=== PATIENT | female | born 1950 | race Caucasian/White ===

== ENCOUNTER → 2018-01-17 | Emergency (ER) | payer OTHER ==
[~2018-01-17] VITALS: Ht 165.1 cm; Wt 85.3 kg
[~2018-01-17] MED LIST: AMLODIPINE BESY10 MG; AVALIDE 150-12.1 TA1 PO; BYSTOLIC5 MG; CALAN80 MG PO; EVISTA60 MG PO; GLIMEPIRIDE4 MG; GLUCOTROL10 MG; GLUCOVANCE 1.251 TAB PO; HUMALOG MIX 75/10 ML; HUMALOG MIX 75/10 ML SUBCUTANEO; METFORMIN HCL500 MG; OSEL75CA PO; PNEU16DI2; SIMVASTATIN40 MG; SYNTHROID50 MCG; TRADJENTA5 MG; TUSSI PRES-B L120 M1 PO; VITAMIN C60 MG PO
== END | disposition home or self-care (01) ==
LOC: ER 17:09
DX: S92.514A Nondisplaced fracture of proximal phalanx of right lesser toe(s), initial encounter for closed fracture (principal); S90.31XA Contusion of right foot, initial encounter; W01.198A Fall on same level from slipping, tripping and stumbling with subsequent striking against other object, initial encounter; Y93.89 Activity, other specified; Y92.89 Other specified places as the place of occurrence of the external cause; Y99.8 Other external cause status

== ENCOUNTER 2019-07-22 07:24 | Outpatient (CLI) | payer OTHER | END 2019-07-22 07:42 | disposition home or self-care (01) | LOC: SONOGRAMA 07:24 → MAMO-SONO 08:15 | DX: R10.84 Generalized abdominal pain (principal); N18.3 Chronic kidney disease, stage 3 (moderate); R31.29 Other microscopic hematuria ==

== ENCOUNTER 2019-08-02 08:24 | Emergency (ER) | payer OTHER ==
[~2019-08-02] VITALS: Ht 165.1 cm; Wt 83.9 kg
[2019-08-02] MEDS ORDERED: VITAMIN D310000 UNIT (08:43)
[2019-08-02] MEDS ORDERED: SIMVASTATIN40 MG (08:43)
[2019-08-02] MEDS ORDERED: VITAMIN D35000 UNI1 (08:43)
[2019-08-02] MEDS ORDERED: DIPYRIDAMOLE25 MG (08:44)
[2019-08-02] MEDS ORDERED: IRBESARTAN-HCT1 EAC1 (08:44)
[2019-08-02] MEDS ORDERED: NORVASC10 MG (08:45)
[2019-08-02] MEDS ORDERED: BYSTOLIC5 MG (08:45)
[2019-08-02] MEDS ORDERED: HUMULIN N100 UNIT/2 (08:45)
[2019-08-02] MEDS ORDERED: ALDACTONE25 MG (08:45)
[2019-08-02] MEDS ORDERED: SYNTHROID50 MCG (08:46)
[2019-08-02] MEDS ORDERED: LANTUS SOL100 UNIT/1 (08:46)
[2019-08-02] MEDS ORDERED: ULTRACET PO (11:10)
== END 2019-08-02 13:31 | disposition home or self-care (01) ==
LOC: ER 08:24
DX: S80.02XA Contusion of left knee, initial encounter (principal); W18.09XA Striking against other object with subsequent fall, initial encounter; Y93.89 Activity, other specified; Y92.59 Other trade areas as the place of occurrence of the external cause; Y99.8 Other external cause status

== ENCOUNTER 2019-10-04 07:44 | Outpatient (CLI) | payer OTHER ==
[~2019-10-04 07:44] MED LIST changes: +ALDACTONE25 MG; +DIPYRIDAMOLE25 MG; +HUMULIN N100 UNIT/2; +IRBESARTAN-HCT1 EAC1; +LANTUS SOL100 UNIT/1; +NORVASC10 MG; +ULTRACET PO; +VITAMIN D310000 UNIT; +VITAMIN D35000 UNI1
== END 2019-10-04 09:00 | disposition home or self-care (01) ==
LOC: NUCLEAR 07:44
DX: I25.10 Atherosclerotic heart disease of native coronary artery without angina pectoris (principal); I11.9 Hypertensive heart disease without heart failure
CPT/HCPCS: 78452; 93017; A9500; J0153

== ENCOUNTER → 2021-05-05 06:37 | Outpatient (CLI) | payer OTHER | END | disposition home or self-care (01) | LOC: LAB 06:37 | PROVIDERS: ATTEND Internal Medicine Hematology & Oncology | DX: D50.8 Other iron deficiency anemias (principal); R79.9 Abnormal finding of blood chemistry, unspecified; R74.02 Elevation of levels of lactic acid dehydrogenase [LDH]; K76.89 Other specified diseases of liver; D63.8 Anemia in other chronic diseases classified elsewhere; D55.0 Anemia due to glucose-6-phosphate dehydrogenase [G6PD] deficiency; D51.1 Vitamin B12 deficiency anemia due to selective vitamin B12 malabsorption with proteinuria; E03.8 Other specified hypothyroidism; E06.3 Autoimmune thyroiditis; D51.0 Vitamin B12 deficiency anemia due to intrinsic factor deficiency; C50.919 Malignant neoplasm of unspecified site of unspecified female breast; R97.8 Other abnormal tumor markers; C56.9 Malignant neoplasm of unspecified ovary; D63.1 Anemia in chronic kidney disease; D72.828 Other elevated white blood cell count; D51.3 Other dietary vitamin B12 deficiency anemia; N18.4 Chronic kidney disease, stage 4 (severe); E11.22 Type 2 diabetes mellitus with diabetic chronic kidney disease; I12.9 Hypertensive chronic kidney disease with stage 1 through stage 4 chronic kidney disease, or unspecified chronic kidney disease ==

== ENCOUNTER 2021-05-17 10:06 | Outpatient (CLI) | payer OTHER | END 2021-05-17 10:14 | disposition home or self-care (01) | LOC: SONOGRAMA 10:06 | PROVIDERS: ATTEND Internal Medicine Hematology & Oncology | DX: E04.2 Nontoxic multinodular goiter (principal); D72.828 Other elevated white blood cell count; D51.3 Other dietary vitamin B12 deficiency anemia; D63.1 Anemia in chronic kidney disease; N18.4 Chronic kidney disease, stage 4 (severe); E11.22 Type 2 diabetes mellitus with diabetic chronic kidney disease; E78.2 Mixed hyperlipidemia; E03.8 Other specified hypothyroidism ==

== ENCOUNTER 2021-06-07 09:34 | Outpatient (CLI) | payer OTHER | END 2021-06-10 16:36 | disposition home or self-care (01) | LOC: TOM 09:34 | PROVIDERS: ATTEND Internal Medicine Hematology & Oncology | DX: K57.90 Diverticulosis of intestine, part unspecified, without perforation or abscess without bleeding (principal); K52.89 Other specified noninfective gastroenteritis and colitis; D72.828 Other elevated white blood cell count; D51.3 Other dietary vitamin B12 deficiency anemia; D63.1 Anemia in chronic kidney disease; E11.22 Type 2 diabetes mellitus with diabetic chronic kidney disease; E78.2 Mixed hyperlipidemia; E03.8 Other specified hypothyroidism; I10 Essential (primary) hypertension; R97.0 Elevated carcinoembryonic antigen [CEA]; K59.09 Other constipation ==

== ENCOUNTER 2022-09-01 15:07 | Emergency (ER) | payer OTHER ==
[~2022-09-01] VITALS: Ht 157.5 cm; Wt 83.9 kg
[2022-09-01] MEDS ORDERED: VAZALORE81 MG PO (15:53)
== END 2022-09-01 16:56 | disposition home or self-care (01) ==
LOC: ER 15:07
DX: S01.81XA Laceration without foreign body of other part of head, initial encounter (principal); W18.11XA Fall from or off toilet without subsequent striking against object, initial encounter; Y93.89 Activity, other specified; Y92.012 Bathroom of single-family (private) house as the place of occurrence of the external cause; Y99.9 Unspecified external cause status

== ENCOUNTER 2022-10-19 07:53 | Inpatient (IN) | payer OTHER ==
[~2022-10-19] VITALS: Ht 157.5 cm; Wt 74.8 kg
[~2022-10-19 07:53] MED LIST changes: +B Complex CAPSULE PO; +CRESTOR10 MG PO; +HYDRAZINE SULFAT1 GM MC; +Neurin-Sl Tablet Sl SL; +PANTOPRAZOLE SO40 MG PO; +VAZALORE81 MG PO
--- NOTE | 2022-10-19 08:19 | NUR ---
PACIENTE FEMINA ALERTA EN COMPANIA DE KESSLER ESPOSO/ LA MISMA REFIERE SENTIRSE FATIGADA. SE UBICA PACIENTE EN CRITICO
[2022-10-19] MEDS ORDERED: BYSTOLIC5 MG PO (08:49)
[2022-10-19] MEDS ORDERED: HYDRALAZINE HCL50 MG PO (08:49)
[2022-10-19] MEDS ORDERED: AMLODIPINE-OLM1 EAC1 PO (08:50)
[2022-10-19] MEDS ORDERED: NEURIN SL (08:50)
[2022-10-19] MEDS ORDERED: CRESTOR10 MG PO (08:50)
[2022-10-19] MEDS ORDERED: LASIX20 MG PO (08:50)
[2022-10-19] MEDS ORDERED: AVAPRO150 MG PO (08:51)
[2022-10-19] MEDS ORDERED: DOXAZOSIN MESYLA2 MG PO (08:51)
[2022-10-19] MEDS ORDERED: INTEGRA PLUS C1 EACH (08:51)
[2022-10-19] MEDS ORDERED: CEFADROXIL500 MG PO (08:51)
[2022-10-19] MEDS ORDERED: SYNTHROID50 MCG PO (08:51)
--- NOTE | 2022-10-19 08:55 | NUR ---
SE RECIBE PACIENTE FEMENINA ALERTA Y ORIENTADA X3, SE COLOCA EN LA ANA #2 CON BARRANDAS ELEVADAS. SE CONECTA A MONITOR CARDIACO, OXIMETRIA DE PULSO Y CANULA NASAL A 3LIT/MIN. SE CANALIZA EN EL BRAZO DERECHO NAOMY Y DERECHO CON ANGIO #20 Y SE LE COLOCA S/L PATENTE DONELL DE EDEMA Y ENROJECIMIENTO. SE LE DOMINGUEZ LAS MUETRAS Y SE LE ADMINISTRAN LOS MEDICAMENTOS CRYSTAL LAS ORDENES MEDICAS. SE LE INSERTA REYES #[phone] CON MEDIDAS ASEPTICAS Y ESTERILES, SE OBSERVA ORINA COLOR BONILLA. SE OBSERVA POR CAMBIOS.
--- NOTE | 2022-10-19 15:23 | NUR ---
SE RECIBE PACIENTE EN CAMA CON MEDIDAS DE SEGURIDAD. LUCE ALERTA,CONSCIENTE Y ORIENTADA X3. DONELL DE DOLOR AL MOMENTO. BUEN PATRON RESPIRATORIO. CANALIZACIONES PATENTES EN AMBOS BRAZOS. REYES DRENANDO UA ABUNDANTE. PTE EN ESPERA DE SER TRANSFUNDIDA.
[2022-10-26] MEDS ORDERED: DYMISTA NASAL S23 GM NASAL (09:01)
[2022-10-26] MEDS ORDERED: AVAPRO150 MG PO (09:02)
== END 2022-10-26 11:44 | disposition home or self-care (01) | DRG 291 ==
LOC: ER 07:53 → MEDJ 18:41 → ICU-2 18:41 → ICU 10-20 05:31 → SURH 10-22 12:33 → ICU 10-22 12:35 → SURH 10-22 14:27
PROVIDERS: ADMIT Internal Medicine; ATTEND Internal Medicine
PROC: 30233N1 Transfusion of Nonautologous Red Blood Cells into Peripheral Vein, Percutaneous Approach (ICD-10-PCS; principal; 2022-10-19)
PROC: 5A0945A Assistance with Respiratory Ventilation, 24-96 Consecutive Hours, High Flow/Velocity Cannula (ICD-10-PCS; 2022-10-19)
PROC: 4A12X4Z Monitoring of Cardiac Electrical Activity, External Approach (ICD-10-PCS; 2022-10-19)
PROC: B24BYZZ Ultrasonography of Heart with Aorta using Other Contrast (ICD-10-PCS; 2022-10-20)
DX: I13.0 Hypertensive heart and chronic kidney disease with heart failure and stage 1 through stage 4 chronic kidney disease, or unspecified chronic kidney disease (principal); I50.43 Acute on chronic combined systolic (congestive) and diastolic (congestive) heart failure; J96.91 Respiratory failure, unspecified with hypoxia; N18.4 Chronic kidney disease, stage 4 (severe); L97.809 Non-pressure chronic ulcer of other part of unspecified lower leg with unspecified severity; E11.622 Type 2 diabetes mellitus with other skin ulcer; D63.1 Anemia in chronic kidney disease; E11.21 Type 2 diabetes mellitus with diabetic nephropathy; E11.22 Type 2 diabetes mellitus with diabetic chronic kidney disease; I35.0 Nonrheumatic aortic (valve) stenosis; J44.9 Chronic obstructive pulmonary disease, unspecified; Z79.4 Long term (current) use of insulin; Z79.84 Long term (current) use of oral hypoglycemic drugs

== ENCOUNTER 2023-01-10 14:01 | Inpatient (IN) | payer OTHER ==
[~2023-01-10] VITALS: Ht 157.5 cm; Wt 174.6 kg
[~2023-01-10 14:01] MED LIST changes: +AMLODIPINE-OLM1 EAC1 PO; +AVAPRO150 MG PO; +BYSTOLIC5 MG PO; +CEFADROXIL500 MG PO; +DOXAZOSIN MESYLA2 MG PO; +DYMISTA NASAL S23 GM NASAL; +HYDRALAZINE HCL50 MG PO; +INTEGRA PLUS C1 EACH; +LASIX20 MG PO; +NEURIN SL; +SYNTHROID50 MCG PO
--- NOTE | 2023-01-10 14:23 | NUR ---
SE RECIBE PACIENTE ALERTA Y ORIENTADA X3 CON RESULTADO DE LABORATORIO DEL [facility] CON LA HGB EN 6.6. SE MONITOREAN S/V Y SE LE REALIZA EKG. SE UBICA PACIENTE.
--- NOTE | 2023-01-10 14:39 | NUR ---
SE CONECTA PACIENTE A CANULA NASAL A 3LT. PACIENTE LLEGA A ER CON OXIGENO
--- NOTE | 2023-01-10 16:43 | NUR ---
SE EDUCA A PTE SOBRE TX MEDICO ESTA REFIERE ENTENDER. SE DOMINGUEZ MUESTRAS DE LABORATORIO UTILIZAND OMEDIDAS ASEPTICAS. SE COLOCA H/L A PTE EL CUAL SE ENCUENTRA PATENTE.
--- NOTE | 2023-01-10 16:59 | NUR ---
SE LLAMA A BANCO DE NICOL DE [employer] Y RN PERES HABLA CON MS BENDER SOBRE SI PACIENTE TIENE RECORD PREVIO BASIL MISMA REFIERE QUE PACIENTE TIENE RECORD PREVIO Y SE REQUISA 3 UNIDADES DE PRBC. SE COLECTAN TUBOS PILOTOS CRYSTAL ORDEN MEDICA UTILIZANDO MEDIDAS ASEPTICAS. PACIENTE FIRMA CONCENTIMIENTO DE TRANFUSION SE COLOCA EN RECORD DE PACIENTE.
[2023-01-17] MEDS ORDERED: PROTONIX40 MG PO (17:22)
== END 2023-01-17 17:43 | disposition home or self-care (01) | DRG 698 ==
LOC: ER 14:01 → SEC-K 17:16 → ICU-2 19:31 → ICU 01-11 19:42 → MEDI 01-15 11:36
PROVIDERS: ADMIT Internal Medicine; ATTEND Internal Medicine
PROC: 30233N1 Transfusion of Nonautologous Red Blood Cells into Peripheral Vein, Percutaneous Approach (ICD-10-PCS; principal; 2023-01-11)
PROC: 5A0945A Assistance with Respiratory Ventilation, 24-96 Consecutive Hours, High Flow/Velocity Cannula (ICD-10-PCS; 2023-01-11)
PROC: 0DJ08ZZ Inspection of Upper Intestinal Tract, Via Natural or Artificial Opening Endoscopic (ICD-10-PCS; 2023-01-13)
PROC: CD271ZZ Tomographic (Tomo) Nuclear Medicine Imaging of Gastrointestinal Tract using Technetium 99m (Tc-99m) (ICD-10-PCS; 2023-01-13)
PROC: 4A12X4Z Monitoring of Cardiac Electrical Activity, External Approach (ICD-10-PCS; 2023-01-15)
DX: E11.22 Type 2 diabetes mellitus with diabetic chronic kidney disease (principal); D63.1 Anemia in chronic kidney disease; D62 Acute posthemorrhagic anemia; I13.0 Hypertensive heart and chronic kidney disease with heart failure and stage 1 through stage 4 chronic kidney disease, or unspecified chronic kidney disease; I50.33 Acute on chronic diastolic (congestive) heart failure; J81.0 Acute pulmonary edema; E87.71 Transfusion associated circulatory overload; K92.1 Melena; K92.2 Gastrointestinal hemorrhage, unspecified; K31.819 Angiodysplasia of stomach and duodenum without bleeding; N18.4 Chronic kidney disease, stage 4 (severe); E11.65 Type 2 diabetes mellitus with hyperglycemia; E11.40 Type 2 diabetes mellitus with diabetic neuropathy, unspecified; N17.9 Acute kidney failure, unspecified; Z79.4 Long term (current) use of insulin

== ENCOUNTER 2023-03-08 15:08 | Inpatient (IN) | payer OTHER ==
[~2023-03-08] VITALS: Ht 157.5 cm; Wt 79.4 kg
[~2023-03-08 15:08] MED LIST changes: +PROTONIX40 MG PO
--- NOTE | 2023-03-08 15:35 | NUR ---
SE RECIBE PACIENTE ALERTA Y ORIENTADA X3, CON CANULA A 2L/MIN; LA MISMA REFIERE SER PACIENTE DEL DR. ONOFRE GARCES. MENCIONA HABERSE REALIZADO CBC EN EL [facility] Y TENER LA HEMOGLOBINA EN 7.4. SE MONITOREAN VS Y SE UBICA EN ANA #13.
[2023-03-09] MEDS ORDERED: B-121000 MC1 (13:09)
[2023-03-09] MEDS ORDERED: HUMALOG KW100 UNIT/1 (13:10)
[2023-03-09] MEDS ORDERED: ESOMEPRAZOLE MA40 MG (13:10)
[2023-03-09] MEDS ORDERED: INTEGRA PLUS C1 EAC1 (13:10)
[2023-03-09] MEDS ORDERED: FUROSEMIDE40 MG (13:10)
[2023-03-09] MEDS ORDERED: SUCRALFATE1 GM/10 ML (13:10)
[2023-03-09] MEDS ORDERED: ROSUVASTATIN CA10 MG (13:10)
[2023-03-09] MEDS ORDERED: ABANEU-SL TABL1 EACH (13:11)
== END 2023-03-11 17:27 | disposition home or self-care (01) | DRG 811 ==
LOC: ER 15:08 → ICU 17:36 → ICU-2 17:36 → ICU 22:39 → MEDJ 03-10 17:34
PROVIDERS: ADMIT Internal Medicine; ATTEND Internal Medicine
PROC: 30233N1 Transfusion of Nonautologous Red Blood Cells into Peripheral Vein, Percutaneous Approach (ICD-10-PCS; 2023-03-08)
PROC: 4A12X4Z Monitoring of Cardiac Electrical Activity, External Approach (ICD-10-PCS; principal; 2023-03-10)
DX: D64.9 Anemia, unspecified (principal); K31.811 Angiodysplasia of stomach and duodenum with bleeding; I50.30 Unspecified diastolic (congestive) heart failure; N17.9 Acute kidney failure, unspecified; R09.02 Hypoxemia; I35.0 Nonrheumatic aortic (valve) stenosis; I27.20 Pulmonary hypertension, unspecified; Z79.4 Long term (current) use of insulin; I11.0 Hypertensive heart disease with heart failure; I12.9 Hypertensive chronic kidney disease with stage 1 through stage 4 chronic kidney disease, or unspecified chronic kidney disease; E11.22 Type 2 diabetes mellitus with diabetic chronic kidney disease; N18.9 Chronic kidney disease, unspecified; E03.9 Hypothyroidism, unspecified; E11.65 Type 2 diabetes mellitus with hyperglycemia; Z20.822 Contact with and (suspected) exposure to COVID-19; N18.30 Chronic kidney disease, stage 3 unspecified; D63.1 Anemia in chronic kidney disease; D46.Z Other myelodysplastic syndromes

== ENCOUNTER 2023-12-13 13:48 | Outpatient (CLI) | payer OTHER ==
[~2023-12-13 13:48] MED LIST changes: +ABANEU-SL TABL1 EACH; +B-121000 MC1; +ESOMEPRAZOLE MA40 MG; +FUROSEMIDE40 MG; +HUMALOG KW100 UNIT/1; +INTEGRA PLUS C1 EAC1; +ROSUVASTATIN CA10 MG; +SUCRALFATE1 GM/10 ML
== END 2023-12-13 13:58 | disposition home or self-care (01) ==
LOC: TOM 13:48
PROVIDERS: ATTEND Internal Medicine
DX: Z87.09 Personal history of other diseases of the respiratory system (principal); I50.30 Unspecified diastolic (congestive) heart failure; Z99.81 Dependence on supplemental oxygen

== ENCOUNTER 2024-12-04 06:45 | Inpatient (IN) | payer OTHER ==
[~2024-12-04] VITALS: Ht 167.6 cm; Wt 71.7 kg
[~2024-12-04 06:45] MED LIST changes: +ADMELOG100 UNIT/1; +CARAFATE1 GM PO; +DYMISTA NASAL S23 GM IH; +FUROSEMIDE20 MG PO; +HUMALOG100 UNIT/2; +HUMULIN N100 UNIT/2 IJ; +INTEGRA F CAPS1 EACH PO; +IRBESARTAN150 MG PO; +LANTUS SOL100 UNIT/1 SQ; +NORVASC10 MG PO; +ROSUVASTATIN CA10 MG PO; +SEMGLEE100 UNIT/1; +TRAMADOL HCL50 MG PO
[2024-12-04 09:44] LABS: MEAN CELL VOLUME 92.2 fL (80.00-100.00); MEAN CORPUSCULAR HGB CONC 32.7 g/dl (32.0-36.0); PLATELET COUNT 309 K/uL (150-450); RED BLOOD COUNT 2.37 M/uL (4.00-6.00); RED CELL DISTRIBUTION WIDTH 17.9 % (11.5-14.5)
[2024-12-04 09:48] LABS: HEMATOCRIT 21.9 % (36.0-45.00); HEMOGLOBIN 7.2 g/dL (12.0-15.00); MEAN CORPUSCULAR HEMOGLOBIN 30.3 pg (27.00-32.0)
[2024-12-04 09:58] LABS: INR 1.09; PARTIAL THROMBOPLASTIN TIME 32.2 SECONDS (22.0-34.0); PROTHROMBIN TIME 11.8 SECONDS (9.0-11.5)
[2024-12-04] MEDS ORDERED: ACETAMINOPHEN 500 MG GEL..CAP PO ONE (09:59)
[2024-12-04 10:11] LABS: ALBUMIN 2.8 gm/dL (3.4-5.0); BILIRUBIN TOTAL 0.4 mg/dL (0.3-1.2); BILIRUBIN,CONJUGATED 0.13 mg/dL (0.0-0.2); BILIRUBIN,UNCONJUGATED 0.27 mg/dL (0.0-0.6); CALCIUM 9.1 mg/dL (8.5-10.1); GFR 7.87; POTASSIUM 4.52 mEq/L (3.5-5.1); TOTAL PROTEIN 7.5 gm/dL (6.4-8.2)
[2024-12-04 10:17] LABS: CREATININE SERUM 5.31 mg/dL (0.55-1.02)
[2024-12-04 12:30] VITALS: BP 152/65
[2024-12-04 12:47] VITALS: BP 132/42; O2SAT 98
[2024-12-04] MEDS ORDERED: PANTOPRAZOLE SODIUM 40 MG TABLET.DR PO SCH (13:49)
[2024-12-04] MEDS ORDERED: INSULIN LISPRO 1,000 UNIT/10 ML UNITS SUBCUTANEO PRN (14:00)
[2024-12-04] MEDS ORDERED: DEXTROSE 50 % IN WATER 0.5 G/ML DISP.SYRIN IV PRN (14:00)
[2024-12-04] MEDS ORDERED: INSULIN LISPRO 1,000 UNIT/10 ML UNITS SUBCUTANEO ONE (15:19)
[2024-12-04 15:25] VITALS: BP 150/60; O2SAT 100
[2024-12-04 17:00] VITALS: BP 152/65; O2SAT 100
[2024-12-04] MEDS ORDERED: CARVEDILOL 6.25 MG TABLET PO SCH (17:00)
[2024-12-04] MEDS ORDERED: AMINO ACIDS 1 EACH TABLET PO SCH (17:00)
[2024-12-04] MEDS ORDERED: hydrALAZINE HCL 50 MG TABLET PO SCH (17:00)
[2024-12-04 17:43] LABS: PH,URINE 6.5 (5.0-8.0); URINE APPEARANCE Turbid; URINE BILIRRUBIN Negative (NEGATIVE); URINE BLOOD Negative; URINE COLOR Yellow; URINE KETONE Trace (NEGATIVE); URINE LEUKOCYTE Small; URINE NITRATE Negative; URINE PROTEIN >=1000 (NEGATIVE); URINE UROBILINOGEN 0.2 E.U./dl
[2024-12-04 17:50] LABS: URINE EPITHELIAL CELLS 45.2 uL (0.0-38.8); URINE RBC 16.9 uL (0.0-20.8); URINE WBC 731.7 uL (0.0-23.2)
[2024-12-04 18:06] LABS: URINE BACTERIA > 9821.5 uL (0.0-1933); URINE CAST 0.66 uL (0.0-1.40); URINE GLUCOSE 500 MG/DL (NEGATIVE)
[2024-12-04] MEDS ORDERED: GABAPENTIN 100 MG CAPSULE PO SCH (21:00)
[2024-12-05] VITALS: BP 124/55; O2SAT 96
[2024-12-05] MEDS ORDERED: LEVOTHYROXINE SODIUM 50 MCG TABLET PO SCH (06:00)
[2024-12-05 07:04] LABS: MEAN CELL VOLUME 91.1 fL (80.00-100.00); MEAN CORPUSCULAR HGB CONC 33.5 g/dl (32.0-36.0); PLATELET COUNT 335 K/uL (150-450); RED BLOOD COUNT 2.37 M/uL (4.00-6.00); RED CELL DISTRIBUTION WIDTH 17.5 % (11.5-14.5)
[2024-12-05 07:20] VITALS: BP 153/67; O2SAT 90
[2024-12-05 07:41] LABS: ALBUMIN 2.8 gm/dL (3.4-5.0); BILIRUBIN TOTAL 0.39 mg/dL (0.3-1.2); CALCIUM 8.6 mg/dL (8.5-10.1); GFR 6.45; GLOBULINA 4.2 G/DL (2.4-3.5); MAGNESIUM 2.4 mg/dL (1.8-2.4); PHOSPHOROUS 5.7 mg/dL (2.5-4.9); POTASSIUM 5.83 mEq/L (3.5-5.1)
[2024-12-05 07:47] LABS: HEMATOCRIT 21.5 % (36.0-45.00); HEMOGLOBIN 7.2 g/dL (12.0-15.00); MEAN CORPUSCULAR HEMOGLOBIN 30.3 pg (27.00-32.0)
[2024-12-05 08:27] LABS: CREATININE SERUM 6.31 mg/dL (0.55-1.02)
[2024-12-05] MEDS ORDERED: IRBESARTAN 150 MG TABLET PO SCH (09:00)
[2024-12-05] MEDS ORDERED: IRON FUM,PS/FOLIC/BCOMP,C NO.9 1 CAP CAPSULE PO SCH (09:00)
[2024-12-05] MEDS ORDERED: AMLODIPINE BESYLATE 5 MG TABLET PO SCH (09:00)
[2024-12-05] MEDS ORDERED: HEPARIN SODIUM,PORCINE 5,000 UNITS/ML VIAL ONE (14:24)
[2024-12-05] MEDS ORDERED: HEPARIN SODIUM,PORCINE 5,000 UNITS/ML VIAL SPEPROC SCH (14:30)
[2024-12-05 15:30] VITALS: BP 159/72; O2SAT 94
[2024-12-05] MEDS ORDERED: PATIENTS OWN MEDICATION (MEDICAMENTO EN PISO) PO SCH (17:00)
[2024-12-05 18:31] LABS: HEMOGLOBIN 10.8 g/dL (12.0-15.00); MEAN CELL VOLUME 88.5 fL (80.00-100.00); MEAN CORPUSCULAR HEMOGLOBIN 29.8 pg (27.00-32.0); MEAN CORPUSCULAR HGB CONC 33.6 g/dl (32.0-36.0); PLATELET COUNT 277 K/uL (150-450); RED BLOOD COUNT 3.62 M/uL (4.00-6.00); RED CELL DISTRIBUTION WIDTH 17.4 % (11.5-14.5)
[2024-12-05 23:27] LABS: ERYTHROCYTE SEDIMENTATION RATE 72 mm/hr
[2024-12-05 23:28] LABS: HEMATOCRIT 27.8 % (36.0-45.00); HEMOGLOBIN 9.3 g/dL (12.0-15.00); MEAN CELL VOLUME 88.9 fL (80.00-100.00); MEAN CORPUSCULAR HEMOGLOBIN 29.8 pg (27.00-32.0); MEAN CORPUSCULAR HGB CONC 33.5 g/dl (32.0-36.0); PLATELET COUNT 299 K/uL (150-450); RED BLOOD COUNT 3.13 M/uL (4.00-6.00); RED CELL DISTRIBUTION WIDTH 16.8 % (11.5-14.5)
[2024-12-05 23:55] LABS: ALBUMIN 2.9 gm/dL (3.4-5.0); BILIRUBIN TOTAL 0.65 mg/dL (0.3-1.2); CALCIUM 8.9 mg/dL (8.5-10.1); GLOBULINA 4.2 G/DL (2.4-3.5); MAGNESIUM 2.1 mg/dL (1.8-2.4); PHOSPHOROUS 4.4 mg/dL (2.5-4.9); POTASSIUM 4.66 mEq/L (3.5-5.1); TOTAL PROTEIN 7.1 gm/dL (6.4-8.2)
[2024-12-06 00:14] LABS: C-REACTIVE PROTEIN 11.7 MG/DL (0.00-0.29); CREATININE SERUM 3.94 mg/dL (0.55-1.02); GFR 11.11
[2024-12-06 00:43] VITALS: BP 129/70; O2SAT 97
[2024-12-06 08:10] VITALS: BP 164/72; O2SAT 95
[2024-12-06] MEDS ORDERED: ACETAMINOPHEN 500 MG GEL..CAP PO PRN (09:15)
[2024-12-06 16:10] VITALS: BP 170/73; O2SAT 100
[2024-12-06] MEDS ORDERED: CARVEDILOL 12.5 MG TABLET PO SCH (17:00)
[2024-12-06] MEDS ORDERED: LIDOCAINE HCL 1%/EPINEPHRINE 20ML VIAL IJ ONE (19:00)
[2024-12-06] MEDS ORDERED: HEPARIN SODIUM,PORCINE 500 UNITS/5 ML VIAL IV ONE (19:00)
[2024-12-06] MEDS ORDERED: BUPIVACAINE HCL 30 ML VIAL IJ ONE (19:00)
[2024-12-07 00:29] VITALS: BP 157/61; O2SAT 98
[2024-12-07 08:44] VITALS: BP 127/72; O2SAT 95
[2024-12-07] MEDS ORDERED: CARVEDILOL12.5 MG PO (13:14)
== END 2024-12-07 13:21 | disposition home or self-care (01) | DRG 683 ==
LOC: ER 06:47 → SURH 14:06 → SEC-K 14:06 → SURH 14:32
PROVIDERS: General Practice; ADMIT Internal Medicine; ATTEND Internal Medicine
PROC: 5A1D70Z Performance of Urinary Filtration, Intermittent, Less than 6 Hours Per Day (ICD-10-PCS; principal; 2024-12-05)
PROC: 30233N1 Transfusion of Nonautologous Red Blood Cells into Peripheral Vein, Percutaneous Approach (ICD-10-PCS; 2024-12-05)
PROC: 0J2VXYZ Change Other Device in Upper Extremity Subcutaneous Tissue and Fascia, External Approach (ICD-10-PCS; 2024-12-06)
PROC: B513YZA Fluoroscopy of Right Jugular Veins using Other Contrast, Guidance (ICD-10-PCS; 2024-12-06)
DX: N18.6 End stage renal disease (principal); T82.41XA Breakdown (mechanical) of vascular dialysis catheter, initial encounter; R50.84 Febrile nonhemolytic transfusion reaction; I12.0 Hypertensive chronic kidney disease with stage 5 chronic kidney disease or end stage renal disease; E11.22 Type 2 diabetes mellitus with diabetic chronic kidney disease; D64.89 Other specified anemias; E11.65 Type 2 diabetes mellitus with hyperglycemia; D63.1 Anemia in chronic kidney disease; E03.9 Hypothyroidism, unspecified; Z99.2 Dependence on renal dialysis; Z79.4 Long term (current) use of insulin

== ENCOUNTER 2024-12-12 11:27 | Emergency (ER) | payer OTHER ==
[~2024-12-12] VITALS: Ht 157.5 cm; Wt 69.9 kg
[~2024-12-12 11:27] MED LIST changes: +CARVEDILOL12.5 MG PO
[2024-12-12] MEDS ORDERED: ACETAMINOPHEN500 M1 PO (14:12)
[2024-12-12] MEDS ORDERED: CYCLOBENZAPRINE5 MG PO (14:12)
== END 2024-12-12 14:21 | disposition home or self-care (01) ==
LOC: ER 11:30
DX: S00.93XA Contusion of unspecified part of head, initial encounter (principal); S00.83XA Contusion of other part of head, initial encounter; W08.XXXA Fall from other furniture, initial encounter; Y93.84 Activity, sleeping; Y92.018 Other place in single-family (private) house as the place of occurrence of the external cause; Y99.9 Unspecified external cause status; E11.9 Type 2 diabetes mellitus without complications; Z79.4 Long term (current) use of insulin; Z79.84 Long term (current) use of oral hypoglycemic drugs; I10 Essential (primary) hypertension

== ENCOUNTER 2024-12-28 12:33 | Inpatient (IN) | payer OTHER ==
[~2024-12-28] VITALS: Ht 157.5 cm; Wt 71.7 kg
[~2024-12-28 12:33] MED LIST changes: +ACETAMINOPHEN500 M1 PO; +CYCLOBENZAPRINE5 MG PO
--- NOTE | 2024-12-28 12:46 | NUR ---
PACIENTE VIENE HOY POR ANEMIA EN HGB 6.6 Y OCCULTBLOOD POSITIVO
[2024-12-28 14:14] LABS: MEAN CELL VOLUME 92.4 fL (80.00-100.00); MEAN CORPUSCULAR HGB CONC 31.8 g/dl (32.0-36.0); PLATELET COUNT 378 K/uL (150-450); RED BLOOD COUNT 2.38 M/uL (4.00-6.00)
[2024-12-28 14:19] LABS: MEAN CORPUSCULAR HEMOGLOBIN 29.4 pg (27.00-32.0)
[2024-12-28 14:22] LABS: RED CELL DISTRIBUTION WIDTH 20.4 % (11.5-14.5)
[2024-12-28 14:27] LABS: INR 1.05; PROTHROMBIN TIME 11.4 SECONDS (9.0-11.5)
[2024-12-28 14:32] LABS: ALBUMIN 2.8 gm/dL (3.4-5.0); BILIRUBIN TOTAL 0.36 mg/dL (0.3-1.2); CALCIUM 9.7 mg/dL (8.5-10.1); CREATININE SERUM 3.31 mg/dL (0.55-1.02); GFR 13.58; GLOBULINA 5.1 G/DL (2.4-3.5); POTASSIUM 4.27 mEq/L (3.5-5.1); TOTAL PROTEIN 7.9 gm/dL (6.4-8.2)
[2024-12-28 14:33] LABS: PARTIAL THROMBOPLASTIN TIME < 20.0 SECONDS (22.0-34.0)
[2024-12-28 14:41] LABS: PH,URINE 7.5 (5.0-8.0); URINE APPEARANCE Turbid; URINE BILIRRUBIN Negative (NEGATIVE); URINE BLOOD Negative; URINE COLOR Yellow; URINE KETONE Trace (NEGATIVE); URINE LEUKOCYTE Moderate; URINE NITRATE Negative; URINE PROTEIN >=1000 (NEGATIVE); URINE UROBILINOGEN 0.2 E.U./dl
[2024-12-28 14:43] LABS: URINE EPITHELIAL CELLS 28.8 uL (0.0-38.8); URINE RBC 5.5 uL (0.0-20.8); URINE WBC 1272.9 uL (0.0-23.2)
[2024-12-28 15:09] LABS: URINE BACTERIA > 9821.5 uL (0.0-1933); URINE CAST 0.58 uL (0.0-1.40); URINE GLUCOSE 250 MG/DL (NEGATIVE); URINE YEAST NEGATIVE /hpf
[2024-12-28] MEDS ORDERED: INSULIN LISPRO 1,000 UNIT/10 ML UNITS SUBCUTANEO PRN (18:15)
[2024-12-28] MEDS ORDERED: DEXTROSE 50 % IN WATER 0.5 G/ML DISP.SYRIN IV PRN (18:15)
[2024-12-28] MEDS ORDERED: CEFTRIAXONE SODIUM 2,000 MG in 0.9 % SODIUM CHLORIDE 100 ML IV SCH (21:35)
[2024-12-28] MEDS ORDERED: 0.9 % SODIUM CHLORIDE 1,000 ML IV SCH (21:45)
[2024-12-28] MEDS ORDERED: PANTOPRAZOLE SODIUM 40 MG in 0.9 % SODIUM CHLORIDE 8 ML IV PUSH SCH (21:46)
[2024-12-28] MEDS ORDERED: CARVEDILOL 6.25 MG TABLET PO SCH (21:53)
[2024-12-28] MEDS ORDERED: hydrALAZINE HCL 50 MG TABLET PO SCH (21:54)
[2024-12-28] MEDS ORDERED: MORPHINE SULFATE 4 MG/ML VIAL IV PRN (22:00)
[2024-12-28 22:30] VITALS: BP 134/53; O2SAT 95
[2024-12-29 00:40] VITALS: BP 140/60; O2SAT 96
[2024-12-29] MEDS ORDERED: IPRATROPIUM BROMIDE 0.5 MG/2.5 ML AMPUL.NEB IH SCH ×2 (05:30→09:15)
[2024-12-29] MEDS ORDERED: LEVALBUTEROL HCL 1.25 MG/3 ML SOLUTION IH SCH ×4 (05:30→13:00)
[2024-12-29] MEDS ORDERED: IPRATROPIUM BROMIDE 0.5 MG/2.5 ML AMPUL.NEB IH ONE (05:44)
[2024-12-29] MEDS ORDERED: LEVALBUTEROL HCL 0.63 MG/3 ML SOLUTION IH ONE ×2 (05:45→08:57)
[2024-12-29 08:25] VITALS: BP 140/60; O2SAT 74
[2024-12-29] MEDS ORDERED: FUROsemide 40 MG/4 ML VIAL IV STA (09:11)
[2024-12-29] MEDS ORDERED: METHYLPREDNISOLONE SOD SUCC 40 MG VIAL IV STA (09:11)
[2024-12-29 11:56] LABS: ABG pCO2 36.2 mmHg (35-45)
[2024-12-29 11:57] LABS: ABG PO2 47.2 mmHg (80-100); BASE EXCESS -4.1 mmol/l; SaO2 80.8 %
[2024-12-29 11:58] LABS: BICARBONATE 20.4 mmol/l (23-25); Tco2 21.5 mmol/l; allen test SATISFACTORY; o2 40 %; puncture site RADIAL RIGHT
[2024-12-29 16:00] VITALS: BP 141/63
[2024-12-29] MEDS ORDERED: MORPHINE SULFATE 4 MG/ML CARTRIDGE IV PRN (17:00)
[2024-12-29 18:54] LABS: HEMATOCRIT 25.2 % (36.0-45.00); HEMOGLOBIN 8.2 g/dL (12.0-15.00); MEAN CELL VOLUME 92.5 fL (80.00-100.00); MEAN CORPUSCULAR HGB CONC 32.4 g/dl (32.0-36.0); PLATELET COUNT 385 K/uL (150-450); RED BLOOD COUNT 2.73 M/uL (4.00-6.00); RED CELL DISTRIBUTION WIDTH 18.4 % (11.5-14.5)
[2024-12-29] MEDS ORDERED: HEPARIN SODIUM,PORCINE 5,000 UNITS/ML VIAL IV ONE (20:15)
[2024-12-30 00:18] LABS: HEMATOCRIT 30.7 % (36.0-45.00); HEMOGLOBIN 10.6 g/dL (12.0-15.00); MEAN CELL VOLUME 88.8 fL (80.00-100.00); MEAN CORPUSCULAR HEMOGLOBIN 30.5 pg (27.00-32.0); MEAN CORPUSCULAR HGB CONC 34.4 g/dl (32.0-36.0); PLATELET COUNT 349 K/uL (150-450); RED BLOOD COUNT 3.46 M/uL (4.00-6.00)
[2024-12-30 01:24] VITALS: BP 145/66
[2024-12-30 06:45] LABS: HEMATOCRIT 30.9 % (36.0-45.00); HEMOGLOBIN 10.5 g/dL (12.0-15.00); MEAN CELL VOLUME 88.6 fL (80.00-100.00); MEAN CORPUSCULAR HEMOGLOBIN 30.2 pg (27.00-32.0); MEAN CORPUSCULAR HGB CONC 34.1 g/dl (32.0-36.0); PLATELET COUNT 365 K/uL (150-450); RED BLOOD COUNT 3.48 M/uL (4.00-6.00); RED CELL DISTRIBUTION WIDTH 18.2 % (11.5-14.5)
[2024-12-30 07:09] LABS: ALBUMIN 2.8 gm/dL (3.4-5.0); BILIRUBIN TOTAL 0.44 mg/dL (0.3-1.2); CALCIUM 9.2 mg/dL (8.5-10.1); CREATININE SERUM 3.2 mg/dL (0.55-1.02); GFR 14.12; GLOBULINA 4.3 G/DL (2.4-3.5); MAGNESIUM 2.2 mg/dL (1.8-2.4); PHOSPHOROUS 5.2 mg/dL (2.5-4.9); POTASSIUM 4.74 mEq/L (3.5-5.1); TOTAL PROTEIN 7.1 gm/dL (6.4-8.2)
[2024-12-30 08:30] VITALS: BP 131/61; O2SAT 94
[2024-12-30] MEDS ORDERED: GABAPENTIN 100 MG CAPSULE PO SCH (09:00)
[2024-12-30] MEDS ORDERED: TRAMADOL HCL 50 MG TABLET PO SCH (09:00)
[2024-12-30] MEDS ORDERED: EPOETIN ALFA-EPBX 10,000 UNIT/ML VIAL (Retacrit) SUBCUTANEO ONE (09:15)
[2024-12-30] MEDS ORDERED: CARVEDILOL12.5 MG PO (09:40)
[2024-12-30] MEDS ORDERED: LANTUS SOL100 UNIT/1 SUBCUTANEO (09:46)
== END 2024-12-30 09:57 | disposition home or self-care (01) | DRG 811 ==
LOC: ER 12:36 → MEDI 22:09 → SEC-K 12-29 02:52 → MEDI 12-29 09:43
PROVIDERS: General Practice; Internal Medicine; ADMIT Internal Medicine; ATTEND Internal Medicine
PROC: 30233N1 Transfusion of Nonautologous Red Blood Cells into Peripheral Vein, Percutaneous Approach (ICD-10-PCS; principal; 2024-12-29)
PROC: 5A1D70Z Performance of Urinary Filtration, Intermittent, Less than 6 Hours Per Day (ICD-10-PCS; 2024-12-29)
PROC: 3E0F7GC Introduction of Other Therapeutic Substance into Respiratory Tract, Via Natural or Artificial Opening (ICD-10-PCS; 2024-12-29)
PROC: 4A12X4Z Monitoring of Cardiac Electrical Activity, External Approach (ICD-10-PCS; 2024-12-29)
DX: D64.89 Other specified anemias (principal); N18.6 End stage renal disease; I12.0 Hypertensive chronic kidney disease with stage 5 chronic kidney disease or end stage renal disease; R06.03 Acute respiratory distress; D63.1 Anemia in chronic kidney disease; J44.9 Chronic obstructive pulmonary disease, unspecified; K31.819 Angiodysplasia of stomach and duodenum without bleeding; E11.51 Type 2 diabetes mellitus with diabetic peripheral angiopathy without gangrene; E03.9 Hypothyroidism, unspecified; Z99.2 Dependence on renal dialysis; Z99.81 Dependence on supplemental oxygen; Z79.4 Long term (current) use of insulin

== ENCOUNTER 2025-01-20 07:13 | Inpatient (IN) | payer OTHER ==
[~2025-01-20] VITALS: Ht 157.5 cm; Wt 68.9 kg
[~2025-01-20 07:13] MED LIST changes: +LANTUS SOL100 UNIT/1 SUBCUTANEO
[2025-01-20] MEDS ORDERED: HUMULIN 70100 UNIT/2 SUBCUTANEO (07:27)
[2025-01-20] MEDS ORDERED: NEXIUM40 M1 PO (07:28)
[2025-01-20] MEDS ORDERED: HYDRALAZINE HC100 MG PO (07:28)
[2025-01-20] MEDS ORDERED: GLYXAMBI 10 MG1 EACH PO (07:29)
[2025-01-20] MEDS ORDERED: CARVEDILOL ER40 MG PO (07:29)
[2025-01-20] MEDS ORDERED: GABAPENTIN100 M2 PO (07:29)
[2025-01-20] MEDS ORDERED: 0.9 % SODIUM CHLORIDE 1,000 ML IV SCH (08:30)
[2025-01-20 09:35] LABS: MEAN CELL VOLUME 98.7 fL (80.00-100.00); MEAN CORPUSCULAR HGB CONC 33.1 g/dl (32.0-36.0); PLATELET COUNT 299 K/uL (150-450); RED BLOOD COUNT 2.33 M/uL (4.00-6.00)
[2025-01-20 09:49] LABS: MEAN CORPUSCULAR HEMOGLOBIN 32.6 pg (27.00-32.0); RED CELL DISTRIBUTION WIDTH 22.5 % (11.5-14.5)
[2025-01-20 09:50] LABS: HEMOGLOBIN 7.6 g/dL (12.0-15.00)
[2025-01-20 10:10] LABS: CALCIUM 9.2 mg/dL (8.5-10.1); GFR 9.08; POTASSIUM 5.13 mEq/L (3.5-5.1)
[2025-01-20 10:42] LABS: CREATININE SERUM 4.69 mg/dL (0.55-1.02)
[2025-01-20] MEDS ORDERED: PANTOPRAZOLE SODIUM 40 MG in 0.9 % SODIUM CHLORIDE 8 ML IV PUSH SCH (12:30)
[2025-01-20] MEDS ORDERED: CARVEDILOL 6.25 MG TABLET PO SCH (12:42)
[2025-01-20] MEDS ORDERED: hydrALAZINE HCL 50 MG TABLET PO SCH (12:43)
[2025-01-20] MEDS ORDERED: AMLODIPINE BESYLATE 5 MG TABLET PO SCH (12:43)
[2025-01-20] MEDS ORDERED: ATORVASTATIN CALCIUM 20 MG TABLET PO SCH (12:44)
[2025-01-20] MEDS ORDERED: INSULIN LISPRO 1,000 UNIT/10 ML UNITS SUBCUTANEO PRN (12:45)
[2025-01-20] MEDS ORDERED: DEXTROSE 50 % IN WATER 0.5 G/ML DISP.SYRIN IV PRN (12:45)
[2025-01-20] MEDS ORDERED: MORPHINE SULFATE 2 MG/ML CARTRIDGE IV PRN (12:45)
[2025-01-20] MEDS ORDERED: GABAPENTIN 100 MG CAPSULE PO SCH (12:55)
[2025-01-20 15:56] VITALS: BP 170/66; O2SAT 98
[2025-01-20 16:10] LABS: ABG PH 7.421 (7.35-7.45); ABG PO2 90.4 mmHg (80-100); BASE EXCESS -0.5 mmol/l; BICARBONATE 23.5 mmol/l (23-25); SaO2 97.1 %; Tco2 24.7 mmol/l
[2025-01-20 17:31] LABS: INR 1.07; PARTIAL THROMBOPLASTIN TIME 31.7 SECONDS (22.0-34.0); PROTHROMBIN TIME 11.6 SECONDS (9.0-11.5)
[2025-01-20 22:57] LABS: allen test SATISFACTORY; o2 21 %; puncture site RADIAL RIGHT
[2025-01-21 00:40] VITALS: BP 139/65; O2SAT 94
[2025-01-21 03:10] VITALS: BP 152/62; O2SAT 94
[2025-01-21] MEDS ORDERED: LEVOTHYROXINE SODIUM 50 MCG TABLET PO SCH (06:00)
[2025-01-21 08:00] VITALS: BP 166/67; O2SAT 95
[2025-01-21] MEDS ORDERED: VANCOMYCIN HCL 1,000 MG VIAL ONE (08:30)
[2025-01-21] MEDS ORDERED: TETRACAINE/BENZOCAINE/BUTAMBEN 56 ML BOTTLE TOP ONE (08:45)
[2025-01-21] MEDS ORDERED: SODIUM HYPOCHLORITE 1OZ TOP SCH (09:00)
[2025-01-21] MEDS ORDERED: VANCOMYCIN HCL 1,000 MG VIAL IV NR (09:00)
[2025-01-21] MEDS ORDERED: MEROPENEM 500 MG/VIAL VIAL IV NR (09:00)
[2025-01-21] MEDS ORDERED: VANCOMYCIN HCL 500 MG VIAL IV SCH (14:00)
[2025-01-21] MEDS ORDERED: CEFEPIME HCL 1,000 MG VIAL IV SCH (17:00)
[2025-01-21 18:00] VITALS: BP 132/72; O2SAT 92
[2025-01-21] MEDS ORDERED: HEPARIN SODIUM,PORCINE 5,000 UNITS/ML VIAL ONE (22:01)
[2025-01-22 00:59] LABS: HEMATOCRIT 30.6 % (36.0-45.00); MEAN CELL VOLUME 94.8 fL (80.00-100.00); MEAN CORPUSCULAR HGB CONC 34.2 g/dl (32.0-36.0); PLATELET COUNT 306 K/uL (150-450); RED BLOOD COUNT 3.23 M/uL (4.00-6.00); RED CELL DISTRIBUTION WIDTH 18.2 % (11.5-14.5)
[2025-01-22 01:05] VITALS: BP 147/74; O2SAT 98
[2025-01-22 01:28] LABS: HEMOGLOBIN 10.5 g/dL (12.0-15.00); MEAN CORPUSCULAR HEMOGLOBIN 32.5 pg (27.00-32.0)
[2025-01-22] MEDS ORDERED: TETRACAINE/BENZOCAINE/BUTAMBEN 56 ML BOTTLE TOP STA (07:40)
[2025-01-22 08:00] VITALS: BP 141/73; O2SAT 94
[2025-01-22 08:02] LABS: MEAN CELL VOLUME 94.1 fL (80.00-100.00); MEAN CORPUSCULAR HEMOGLOBIN 32.2 pg (27.00-32.0); MEAN CORPUSCULAR HGB CONC 34.2 g/dl (32.0-36.0); PLATELET COUNT 319 K/uL (150-450); RED BLOOD COUNT 2.98 M/uL (4.00-6.00); RED CELL DISTRIBUTION WIDTH 18.6 % (11.5-14.5)
[2025-01-22 08:16] LABS: HEMOGLOBIN 9.6 g/dL (12.0-15.00)
[2025-01-22 11:36] LABS: ALBUMIN 2.5 gm/dL (3.4-5.0); BILIRUBIN TOTAL 0.53 mg/dL (0.3-1.2); CALCIUM 8.6 mg/dL (8.5-10.1); GLOBULINA 3.9 G/DL (2.4-3.5); MAGNESIUM 2.4 mg/dL (1.8-2.4); PHOSPHOROUS 4.2 mg/dL (2.5-4.9); POTASSIUM 4.55 mEq/L (3.5-5.1); TOTAL PROTEIN 6.4 gm/dL (6.4-8.2)
[2025-01-22 11:38] LABS: C-REACTIVE PROTEIN 15.7 MG/DL (0.00-0.29); CREATININE SERUM 3.92 mg/dL (0.55-1.02); GFR 11.17
[2025-01-22 17:00] VITALS: BP 124/50; O2SAT 96
[2025-01-22] MEDS ORDERED: VITAMIN B COMPLEX/LYSINE 15 ML BLIST.PACK PO SCH (17:00)
[2025-01-22] MEDS ORDERED: EPOETIN ALFA-EPBX 10,000 UNIT/ML VIAL (Retacrit) SUBCUTANEO NR (17:00)
[2025-01-22] MEDS ORDERED: POLYETHYLENE GLYCOL 3350 17 GM BLIST.PACK PO SCH (17:45)
[2025-01-23 01:15] VITALS: BP 147/69; O2SAT 97
[2025-01-23 09:05] LABS: D DIMER 2.91 MG/L
[2025-01-23 10:48] VITALS: BP 131/51; O2SAT 95
[2025-01-23 18:40] VITALS: BP 127/57; O2SAT 94
[2025-01-24] VITALS: BP 131/61; O2SAT 95
[2025-01-24 09:11] VITALS: BP 158/62; O2SAT 95
[2025-01-24 13:16] LABS: HEMATOCRIT 27.9 % (36.0-45.00); HEMOGLOBIN 9.3 g/dL (12.0-15.00); MEAN CELL VOLUME 94.1 fL (80.00-100.00); MEAN CORPUSCULAR HEMOGLOBIN 31.3 pg (27.00-32.0); MEAN CORPUSCULAR HGB CONC 33.3 g/dl (32.0-36.0); PLATELET COUNT 306 K/uL (150-450); RED BLOOD COUNT 2.97 M/uL (4.00-6.00); RED CELL DISTRIBUTION WIDTH 18.9 % (11.5-14.5)
[2025-01-24 13:53] LABS: ALBUMIN 2.4 gm/dL (3.4-5.0); BILIRUBIN TOTAL 0.33 mg/dL (0.3-1.2); CALCIUM 8.5 mg/dL (8.5-10.1); GLOBULINA 3.8 G/DL (2.4-3.5); MAGNESIUM 2.5 mg/dL (1.8-2.4); PHOSPHOROUS 5.2 mg/dL (2.5-4.9); POTASSIUM 4.82 mEq/L (3.5-5.1); TOTAL PROTEIN 6.2 gm/dL (6.4-8.2)
[2025-01-24 14:16] LABS: GFR 7.07
[2025-01-24 14:17] LABS: C-REACTIVE PROTEIN 12.4 MG/DL (0.00-0.29); CREATININE SERUM 5.83 mg/dL (0.55-1.02)
[2025-01-24] MEDS ORDERED: HEPARIN SODIUM,PORCINE 5,000 UNITS/ML VIAL ONE (15:21)
[2025-01-24] MEDS ORDERED: MEROPENEM 500 MG/VIAL VIAL IV SCH (17:44)
[2025-01-24 18:26] VITALS: BP 102/63; O2SAT 97
[2025-01-25 00:30] VITALS: BP 147/81; O2SAT 97
[2025-01-25 09:25] LABS: URINE APPEARANCE Cloudy; URINE BILIRRUBIN Negative (NEGATIVE); URINE BLOOD Trace; URINE COLOR Yellow; URINE KETONE Negative (NEGATIVE); URINE LEUKOCYTE Moderate; URINE NITRATE Negative; URINE UROBILINOGEN 0.2 E.U./dl
[2025-01-25 09:28] LABS: URINE BACTERIA 1545.8 uL (0.0-1933); URINE EPITHELIAL CELLS 25.1 uL (0.0-38.8); URINE RBC 8.5 uL (0.0-20.8); URINE WBC 1518.6 uL (0.0-23.2)
[2025-01-25 09:31] LABS: URINE CAST 0.73 uL (0.0-1.40); URINE GLUCOSE 500 MG/DL (NEGATIVE); URINE PROTEIN 300 (NEGATIVE)
[2025-01-25 09:38] LABS: URINE YEAST FEW /hpf
[2025-01-25 12:00] VITALS: BP 183/72; O2SAT 95
[2025-01-25 16:00] VITALS: BP 138/64; O2SAT 95
[2025-01-26 01:29] VITALS: BP 129/62; O2SAT 97
[2025-01-26] MEDS ORDERED: CLONAZEPAM 0.5 MG TABLET PO ONE (06:30)
[2025-01-26 08:00] VITALS: BP 155/70; O2SAT 97
[2025-01-26 16:50] VITALS: BP 158/71; O2SAT 96
[2025-01-26] MEDS ORDERED: CLONAZEPAM 0.5 MG TABLET PO SCH (21:00)
[2025-01-27] VITALS: BP 161/66; O2SAT 95
[2025-01-27 08:00] VITALS: BP 165/69; O2SAT 99
[2025-01-27] MEDS ORDERED: FUROsemide 40 MG/4 ML VIAL IV STA (08:43)
[2025-01-27] MEDS ORDERED: EPOETIN ALFA-EPBX 10,000 UNIT/ML VIAL (Retacrit) SUBCUTANEO SCH (09:00)
[2025-01-27 16:00] VITALS: BP 159/59; O2SAT 97
[2025-01-27 19:23] VITALS: BP 153/65; O2SAT 97
[2025-01-27] MEDS ORDERED: HEPARIN SODIUM,PORCINE 5,000 UNITS/ML VIAL IV NR (19:45)
[2025-01-28 01:07] VITALS: BP 123/52; O2SAT 98
[2025-01-28 05:02] LABS: HEMATOCRIT 30.8 % (36.0-45.00); MEAN CELL VOLUME 94.3 fL (80.00-100.00); MEAN CORPUSCULAR HGB CONC 32.6 g/dl (32.0-36.0); PLATELET COUNT 292 K/uL (150-450); RED BLOOD COUNT 3.27 M/uL (4.00-6.00); RED CELL DISTRIBUTION WIDTH 18.2 % (11.5-14.5)
[2025-01-28 05:11] LABS: MEAN CORPUSCULAR HEMOGLOBIN 30.5 pg (27.00-32.0)
[2025-01-28 05:20] LABS: ALBUMIN 2.4 gm/dL (3.4-5.0); CALCIUM 8.6 mg/dL (8.5-10.1); GFR 13.21; MAGNESIUM 2.2 mg/dL (1.8-2.4); PHOSPHOROUS 3.5 mg/dL (2.5-4.9); POTASSIUM 3.98 mEq/L (3.5-5.1)
[2025-01-28 05:22] LABS: CREATININE SERUM 3.39 mg/dL (0.55-1.02)
[2025-01-28 08:00] VITALS: BP 156/66
[2025-01-28 16:39] VITALS: BP 150/59; O2SAT 94
[2025-01-29 01:25] VITALS: BP 136/61
[2025-01-29] MEDS ORDERED: TETRACAINE/BENZOCAINE/BUTAMBEN 56 ML BOTTLE TOP STA (07:42)
[2025-01-29 09:50] VITALS: BP 140/56; O2SAT 100
[2025-01-29 18:07] VITALS: BP 138/60; O2SAT 100
[2025-01-30 02:04] VITALS: BP 144/66
[2025-01-30 08:00] VITALS: BP 155/71
[2025-01-30 19:35] VITALS: BP 135/63; O2SAT 96
[2025-01-30] MEDS ORDERED: GABAPENTIN 300 MG CAPSULE PO SCH (21:00)
[2025-01-31 04:04] VITALS: BP 131/55
[2025-01-31 09:08] VITALS: BP 123/61
[2025-01-31 18:42] VITALS: BP 124/52; O2SAT 95
[2025-01-31 23:59] LABS: HEMATOCRIT 32.7 % (36.0-45.00); HEMOGLOBIN 10.8 g/dL (12.0-15.00); MEAN CELL VOLUME 92.9 fL (80.00-100.00); MEAN CORPUSCULAR HEMOGLOBIN 30.7 pg (27.00-32.0); PLATELET COUNT 249 K/uL (150-450); RED BLOOD COUNT 3.52 M/uL (4.00-6.00); RED CELL DISTRIBUTION WIDTH 17.8 % (11.5-14.5)
[2025-02-01 00:12] LABS: CALCIUM 8.7 mg/dL (8.5-10.1); CREATININE SERUM 2.87 mg/dL (0.55-1.02); GFR 16.01; MAGNESIUM 2.1 mg/dL (1.8-2.4); POTASSIUM 3.97 mEq/L (3.5-5.1)
[2025-02-01 00:48] VITALS: BP 150/65; O2SAT 93
[2025-02-01 08:10] VITALS: BP 173/66
[2025-02-01] MEDS ORDERED: INTESTINEX680 M1 PO (14:32)
== END 2025-02-01 14:40 | disposition home or self-care (01) | DRG 811 ==
LOC: ER 07:13 → SURH 13:23 → MEDI 01-27 17:53 → MEDJ 01-28 10:20
PROVIDERS: Emergency Medicine; General Practice; Internal Medicine Infectious Disease; Internal Medicine Nephrology; ADMIT Internal Medicine; ATTEND Internal Medicine
PROC: 30243N1 Transfusion of Nonautologous Red Blood Cells into Central Vein, Percutaneous Approach (ICD-10-PCS; 2025-01-20)
PROC: 5A1D70Z Performance of Urinary Filtration, Intermittent, Less than 6 Hours Per Day (ICD-10-PCS; principal; 2025-01-21)
PROC: B24BYZZ Ultrasonography of Heart with Aorta using Other Contrast (ICD-10-PCS; 2025-01-21)
PROC: BQ3FZZZ Magnetic Resonance Imaging (MRI) of Left Lower Leg (ICD-10-PCS; 2025-01-23)
PROC: B54DZZZ Ultrasonography of Bilateral Lower Extremity Veins (ICD-10-PCS; 2025-01-23)
PROC: 5A1D70Z Performance of Urinary Filtration, Intermittent, Less than 6 Hours Per Day (ICD-10-PCS; 2025-01-24)
PROC: 0HBLXZZ Excision of Left Lower Leg Skin, External Approach (ICD-10-PCS; 2025-01-29)
PROC: 5A1D70Z Performance of Urinary Filtration, Intermittent, Less than 6 Hours Per Day (ICD-10-PCS; 2025-01-31)
DX: D64.9 Anemia, unspecified (principal); N18.6 End stage renal disease; I12.9 Hypertensive chronic kidney disease with stage 1 through stage 4 chronic kidney disease, or unspecified chronic kidney disease; N18.9 Chronic kidney disease, unspecified; E03.9 Hypothyroidism, unspecified; I83.009 Varicose veins of unspecified lower extremity with ulcer of unspecified site; I83.018 Varicose veins of right lower extremity with ulcer other part of lower leg; I83.028 Varicose veins of left lower extremity with ulcer other part of lower leg

== ENCOUNTER 2025-04-14 07:00 | Inpatient (IN) | payer OTHER ==
[~2025-04-14] VITALS: Ht 157.5 cm; Wt 66.2 kg
[~2025-04-14 07:00] MED LIST changes: +CARVEDILOL ER40 MG PO; +GABAPENTIN100 M2 PO; +GLYXAMBI 10 MG1 EACH PO; +HUMULIN 70100 UNIT/2 SUBCUTANEO; +HYDRALAZINE HC100 MG PO; +INTESTINEX680 M1 PO; +NEXIUM40 M1 PO
--- NOTE | 2025-04-14 07:50 | NUR ---
PACIENTE ALERTA Y ORIENTADO X3 LA MISMA REFIERE HEMOBLOBINA 7, PACIENTE RENAL, LA MISMA REFLEJA ULCERAS EN AMBOS PIES PACIENTE DEL DRJOELONOFRE GARCES. S/V ESTABLE DENTRO DE KESSLER CONDICION . PACIENTE EN ANA CON BARANDAS ELEVADAS EN ESPERA DE EVALUACION MEDICA.
[2025-04-14] MEDS ORDERED: 0.9 % SODIUM CHLORIDE 1,000 ML IV SCH (08:30)
[2025-04-14 09:10] LABS: BASO % 0.5 % (0.1-1.2); EOS # 0.51 (0.04-0.54); EOS % 6.9 % (0.7-7.0); LYMPH % 10.8 % (19.3-53.1); MEAN CORPUSCULAR HEMOGLOBIN 32.5 pg (25.6-32.2); MONO % 9.5 % (4.7-12.5); NEUT # 5.32 (1.56-6.13); PLATELET COUNT 190 K/uL (163-369); RED BLOOD COUNT 2.03 M/uL (3.93-5.22)
[2025-04-14 09:21] LABS: HEMATOCRIT 19.9 % (34.1-44.9); HEMOGLOBIN 6.6 g/dL (11.2-15.7)
[2025-04-14 10:26] LABS: CALCIUM 9.1 mg/dL (8.5-10.1); GFR 8.58; POTASSIUM 5.14 mEq/L (3.5-5.1)
[2025-04-14 10:38] LABS: CREATININE SERUM 4.93 mg/dL (0.55-1.02)
[2025-04-14 12:40] LABS: URINE APPEARANCE Clear; URINE BILIRRUBIN Negative (NEGATIVE); URINE BLOOD Negative; URINE COLOR Yellow; URINE KETONE Negative (NEGATIVE); URINE LEUKOCYTE Negative; URINE NITRATE Negative; URINE UROBILINOGEN 0.2 E.U./dl
[2025-04-14 12:44] LABS: URINE BACTERIA 19.5 uL (0.0-1933); URINE EPITHELIAL CELLS 23.8 uL (0.0-38.8)
[2025-04-14 12:46] LABS: URINE GLUCOSE 100 MG/DL (NEGATIVE); URINE PROTEIN 300 (NEGATIVE); URINE RBC 0.2 uL (0.0-20.8)
[2025-04-14] MEDS ORDERED: PANTOPRAZOLE SODIUM 40 MG in 0.9 % SODIUM CHLORIDE 8 ML IV PUSH SCH (14:06)
[2025-04-14] MEDS ORDERED: DEXTROSE 50 % IN WATER 0.5 G/ML DISP.SYRIN IV PRN (14:15)
[2025-04-14] MEDS ORDERED: INSULIN LISPRO 1,000 UNIT/10 ML UNITS SUBCUTANEO PRN (14:15)
[2025-04-14] MEDS ORDERED: FUROsemide 20 MG/2 ML VIAL IV PRN (14:15)
[2025-04-14] MEDS ORDERED: ONDANSETRON HCL 2 MG/ML VIAL IV PRN (14:15)
[2025-04-14] MEDS ORDERED: ENALAPRILAT DIHYDRATE 1.25 MG/ML VIAL IV PRN (14:15)
[2025-04-14] MEDS ORDERED: hydrALAZINE HCL 50 MG TABLET PO SCH (17:00)
[2025-04-14] MEDS ORDERED: AMINO ACIDS 1 EACH TABLET PO SCH (17:00)
[2025-04-14 20:27] VITALS: BP 117/42; O2SAT 97
[2025-04-14 21:33] VITALS: O2SAT 99
[2025-04-15] VITALS (9 sets, daily range): BP systolic 130–168; BP diastolic 65–66; O2SAT 95–100
[2025-04-15 04:55] LABS: URINE APPEARANCE Clear; URINE BILIRRUBIN Negative (NEGATIVE); URINE BLOOD Negative; URINE COLOR Yellow; URINE KETONE Negative (NEGATIVE); URINE LEUKOCYTE Trace; URINE NITRATE Negative; URINE UROBILINOGEN 0.2 E.U./dl
[2025-04-15 04:59] LABS: URINE BACTERIA 440.6 uL (0.0-1933); URINE EPITHELIAL CELLS 97.3 uL (0.0-38.8); URINE WBC 17.5 uL (0.0-23.2)
[2025-04-15 05:03] LABS: URINE GLUCOSE 250 MG/DL (NEGATIVE); URINE PROTEIN 300 (NEGATIVE); URINE RBC 1.7 uL (0.0-20.8)
[2025-04-15 05:17] LABS: ob POSITIVE (NEGATIVE)
[2025-04-15] MEDS ORDERED: LEVOTHYROXINE SODIUM 50 MCG TABLET PO SCH (06:00)
[2025-04-15] MEDS ORDERED: ROSUVASTATIN CALCIUM 10 MG TABLET PO SCH (09:00)
[2025-04-15] MEDS ORDERED: Cyanocobalamin/Mecobalamin 1 TAB.SL SL SCH (09:00)
[2025-04-15] MEDS ORDERED: IRBESARTAN 150 MG TABLET PO SCH (09:00)
[2025-04-15] MEDS ORDERED: FUROsemide 20 MG TABLET PO SCH (09:00)
[2025-04-15] MEDS ORDERED: CARVEDILOL 12.5 MG TABLET PO SCH (17:00)
[2025-04-15] MEDS ORDERED: HEPARIN SODIUM,PORCINE 5,000 UNITS/ML VIAL ONE (18:51)
[2025-04-15 23:59] LABS: BASO % 0.2 % (0.1-1.2); EOS # 0.41 (0.04-0.54); EOS % 4.9 % (0.7-7.0); HEMOGLOBIN 12.2 g/dL (11.2-15.7); LYMPH # 0.48 (1.18-3.74); LYMPH % 5.8 % (19.3-53.1); MEAN CORPUSCULAR HEMOGLOBIN 30.3 pg (25.6-32.2); MONO # 0.53 (0.24-0.82); MONO % 6.4 % (4.7-12.5); NEUT # 6.87 (1.56-6.13); NEUT % 82.5 % (34.0-71.1); PLATELET COUNT 192 K/uL (163-369); RED BLOOD COUNT 4.02 M/uL (3.93-5.22); RED CELL DISTRIBUTION WIDTH 18.5 % (11.6-14.4)
[2025-04-16 00:17] VITALS: O2SAT 97
[2025-04-16 02:53] VITALS: BP 157/55; O2SAT 95
[2025-04-16 08:00] VITALS: BP 151/60; O2SAT 100
[2025-04-16] MEDS ORDERED: INSULIN LISPRO 1,000 UNIT/10 ML UNITS SUBCUTANEO SCH (08:00)
[2025-04-16] MEDS ORDERED: INSULIN GLARGINE,HUM.REC.ANLOG 1,000 UNITS/10 ML UNITS SUBCUTANEO SCH (09:00)
[2025-04-16 09:56] LABS: BASO % 0.6 % (0.1-1.2); EOS # 0.27 (0.04-0.54); EOS % 4.3 % (0.7-7.0); HEMATOCRIT 32.2 % (34.1-44.9); HEMOGLOBIN 10.6 g/dL (11.2-15.7); LYMPH # 0.45 (1.18-3.74); LYMPH % 7.1 % (19.3-53.1); MEAN CORPUSCULAR HEMOGLOBIN 29.8 pg (25.6-32.2); MONO # 0.63 (0.24-0.82); NEUT # 4.92 (1.56-6.13); NEUT % 77.7 % (34.0-71.1); PLATELET COUNT 176 K/uL (163-369); RED BLOOD COUNT 3.56 M/uL (3.93-5.22); RED CELL DISTRIBUTION WIDTH 18.2 % (11.6-14.4)
[2025-04-16 10:16] LABS: INR 1.1; PARTIAL THROMBOPLASTIN TIME 31.9 SECONDS (22.0-34.0); PROTHROMBIN TIME 11.9 SECONDS (9.0-11.5)
[2025-04-16 10:19] LABS: ERYTHROCYTE SEDIMENTATION RATE 60 mm/hr (0-30)
[2025-04-16 10:58] LABS: ALBUMIN 3.3 gm/dL (3.4-5.0); BILIRUBIN TOTAL 0.79 mg/dL (0.3-1.2); BILIRUBIN,CONJUGATED 0.22 mg/dL (0.0-0.2); BILIRUBIN,UNCONJUGATED 0.57 mg/dL (0.0-0.6); CREATININE SERUM 3.81 mg/dL (0.55-1.02); GFR 11.55; GLOBULINA 3.9 G/DL (2.4-3.5); MAGNESIUM 2.6 mg/dL (1.8-2.4); POTASSIUM 5.12 mEq/L (3.5-5.1); TOTAL PROTEIN 7.2 gm/dL (6.4-8.2); TSH 2.21 uIU/mL (0.358-3.74)
[2025-04-16 11:12] LABS: C-REACTIVE PROTEIN 2.26 MG/DL (0.00-0.29)
[2025-04-16 16:03] VITALS: O2SAT 98
[2025-04-16 18:57] VITALS: BP 140/78
[2025-04-16 19:05] VITALS: O2SAT 93
[2025-04-17] VITALS: O2SAT 89
[2025-04-17 03:34] VITALS: BP 185/66
[2025-04-17 05:24] VITALS: O2SAT 89
[2025-04-17 08:19] VITALS: BP 160/66; O2SAT 100
[2025-04-17 10:13] LABS: BASO % 0.7 % (0.1-1.2); EOS # 0.39 (0.04-0.54); EOS % 6.4 % (0.7-7.0); HEMATOCRIT 32.1 % (34.1-44.9); HEMOGLOBIN 10.7 g/dL (11.2-15.7); LYMPH # 0.62 (1.18-3.74); LYMPH % 10.2 % (19.3-53.1); MEAN CORPUSCULAR HEMOGLOBIN 30.5 pg (25.6-32.2); MONO # 0.72 (0.24-0.82); MONO % 11.8 % (4.7-12.5); NEUT % 70.6 % (34.0-71.1); PLATELET COUNT 166 K/uL (163-369); RED BLOOD COUNT 3.51 M/uL (3.93-5.22); RED CELL DISTRIBUTION WIDTH 17.7 % (11.6-14.4)
[2025-04-17 11:17] VITALS: O2SAT 98
== END 2025-04-17 14:00 | disposition home or self-care (01) | DRG 580 ==
LOC: ER 07:00 → MEDJ 20:12
PROVIDERS: Emergency Medicine; ADMIT Internal Medicine; ATTEND Internal Medicine
PROC: 4A12X4Z Monitoring of Cardiac Electrical Activity, External Approach (ICD-10-PCS; 2025-04-14)
PROC: 30233N1 Transfusion of Nonautologous Red Blood Cells into Peripheral Vein, Percutaneous Approach (ICD-10-PCS; 2025-04-14)
PROC: 0JBP3ZZ Excision of Left Lower Leg Subcutaneous Tissue and Fascia, Percutaneous Approach (ICD-10-PCS; principal; 2025-04-15)
PROC: 0JBN3ZZ Excision of Right Lower Leg Subcutaneous Tissue and Fascia, Percutaneous Approach (ICD-10-PCS; 2025-04-15)
DX: L97.818 Non-pressure chronic ulcer of other part of right lower leg with other specified severity (principal); N18.5 Chronic kidney disease, stage 5; L97.828 Non-pressure chronic ulcer of other part of left lower leg with other specified severity; E11.622 Type 2 diabetes mellitus with other skin ulcer; D64.89 Other specified anemias; Z79.4 Long term (current) use of insulin; E03.9 Hypothyroidism, unspecified; E11.22 Type 2 diabetes mellitus with diabetic chronic kidney disease; I12.9 Hypertensive chronic kidney disease with stage 1 through stage 4 chronic kidney disease, or unspecified chronic kidney disease; D63.1 Anemia in chronic kidney disease

== ENCOUNTER 2025-08-06 19:18 | Inpatient (IN) | payer OTHER ==
[~2025-08-06] VITALS: Ht 157.5 cm; Wt 70.3 kg
[2025-08-06] MEDS ORDERED: ONDANSETRON HCL 2 MG/ML VIAL IV STA (20:22)
[2025-08-06] MEDS ORDERED: ONDANSETRON HCL 2 MG/ML VIAL ONE (20:32)
[2025-08-06 21:06] LABS: BASO % 0.4 % (0.1-1.2); EOS # 0.10 (0.04-0.54); EOS % 1.5 % (0.7-7.0); LYMPH # 0.90 (1.18-3.74); LYMPH % 13.2 % (19.3-53.1); MEAN PLATELET VOLUME 10.40 fl (9.4-12.4); MONO # 0.73 (0.24-0.82); MONO % 10.7 % (4.7-12.5); NEUT # 5.02 (1.56-6.13); NEUT % 73.8 % (34.0-71.1); RED CELL DISTRIBUTION WIDTH 16.9 % (11.6-14.4)
[2025-08-06 21:42] LABS: ALT/SGPT 17.0 U/L (12-78); AST/SGOT 18.0 U/L (15-37); BILIRUBIN TOTAL 0.28 mg/dL (0.3-1.2); BUN CREA RATIO 10.0 (7.0-25.0); CREATININE SERUM 2.74 mg/dL (0.55-1.02); GFR 16.89; GLOBULINA 3.6 G/DL (2.4-3.5); GLUCOSE FASTING 181.0 mg/dL (65-100); OSMOLALITY SERUM 288.0 MOSM/KG (275-295)
[2025-08-06 22:08] LABS: ABG PH 7.571 (7.35-7.45); ABG PO2 137.2 mmHg (80-100); BICARBONATE 32.3 mmol/l (23-25)
[2025-08-06 22:15] LABS: o2 36 %
[2025-08-06] MEDS ORDERED: PANTOPRAZOLE SODIUM 40 MG/VIAL VIAL IV ONE (22:45)
[2025-08-06] MEDS ORDERED: PANTOPRAZOLE SODIUM 80 MG in 0.9 % SODIUM CHLORIDE 100 ML IV SCH (22:45)
[2025-08-06] MEDS ORDERED: OCTREOTIDE ACETATE 0.05MG/ML (50MCG/ML) AMPUL IV ONE (22:45)
[2025-08-06] MEDS ORDERED: CEFTRIAXONE SODIUM 1,000 MG in DEXTROSE 5 % IN WATER 100 ML IV ONE (22:45)
[2025-08-06] MEDS ORDERED: OCTREOTIDE ACETATE 1,250 MCG in 0.9 % SODIUM CHLORIDE 250 ML IV SCH (22:45)
[2025-08-06] MEDS ORDERED: ONDANSETRON HCL 4 MG in 0.9 % SODIUM CHLORIDE 50 ML IV PRN (22:45)
[2025-08-06] MEDS ORDERED: INSULIN LISPRO 1,000 UNIT/10 ML UNITS SUBCUTANEO PRN (23:00)
[2025-08-06] MEDS ORDERED: DEXTROSE 50 % IN WATER 0.5 G/ML DISP.SYRIN IV PRN (23:00)
[2025-08-07] VITALS (10 sets, daily range): BP systolic 111–152; BP diastolic 37–72; O2SAT 97–100
[2025-08-07] MEDS ORDERED: CEFTRIAXONE SODIUM 1,000 MG VIAL ONE (00:47)
[2025-08-07] MEDS ORDERED: OCTREOTIDE ACETATE 0.05MG/ML (50MCG/ML) AMPUL ONE (00:47)
[2025-08-07] MEDS ORDERED: IPRATROPIUM BROMIDE 0.5 MG/2.5 ML AMPUL.NEB IH SCH (01:00)
[2025-08-07 01:50] LABS: INR 1.1
[2025-08-07] MEDS ORDERED: LEVOTHYROXINE SODIUM 50 MCG TABLET PO SCH (06:00)
[2025-08-07] MEDS ORDERED: hydrALAZINE HCL 20 MG VIAL IV PRN (08:15)
[2025-08-07] MEDS ORDERED: POLYETHYLENE GLYCOL 3350 17 GM BLIST.PACK PO SCH (09:00)
[2025-08-07] MEDS ORDERED: CARVEDILOL 3.125 MG TABLET PO SCH (09:00)
[2025-08-07 18:51] LABS: BASO % 0.5 % (0.1-1.2); EOS # 0.20 (0.04-0.54); EOS % 3.3 % (0.7-7.0); LYMPH # 0.88 (1.18-3.74); LYMPH % 14.4 % (19.3-53.1); MEAN PLATELET VOLUME 9.70 fl (9.4-12.4); MONO # 0.55 (0.24-0.82); MONO % 9.0 % (4.7-12.5); NEUT # 4.39 (1.56-6.13); NEUT % 72.1 % (34.0-71.1); RED CELL DISTRIBUTION WIDTH 17.6 % (11.6-14.4)
[2025-08-07] MEDS ORDERED: OCTREOTIDE ACETATE 1,250 MCG in 0.9 % SODIUM CHLORIDE 250 ML IV SCH (21:00)
[2025-08-08 07:36] VITALS: BP 138/64
[2025-08-08 12:00] VITALS: BP 148/82; O2SAT 100
[2025-08-08] MEDS ORDERED: GLUCAGON 1 MG VIAL IV STA (14:11)
[2025-08-08] MEDS ORDERED: MIDAZOLAM HCL 2 MG/2 ML VIAL IV ONE (14:15)
[2025-08-08] MEDS ORDERED: fentaNYL CITRATE 50 MCG/ML AMPUL IV PUSH ONE (14:15)
[2025-08-08 15:31] VITALS: BP 135/50; O2SAT 100
[2025-08-08 20:00] VITALS: BP 156/52; O2SAT 100
[2025-08-08] MEDS ORDERED: SUCRALFATE 1 G TABLET PO SCH (22:48)
[2025-08-08 23:16] VITALS: BP 159/52; O2SAT 100
[2025-08-09 04:00] VITALS: BP 155/48; O2SAT 100
[2025-08-09 07:11] VITALS: BP 156/61; O2SAT 100
[2025-08-09 07:53] LABS: BASO % 0.8 % (0.1-1.2); EOS # 0.28 (0.04-0.54); EOS % 4.4 % (0.7-7.0); LYMPH # 0.86 (1.18-3.74); LYMPH % 13.5 % (19.3-53.1); MEAN PLATELET VOLUME 9.80 fl (9.4-12.4); MONO # 0.72 (0.24-0.82); MONO % 11.3 % (4.7-12.5); NEUT # 4.46 (1.56-6.13); NEUT % 69.7 % (34.0-71.1); RED CELL DISTRIBUTION WIDTH 17.2 % (11.6-14.4)
[2025-08-09 08:25] LABS: BUN CREA RATIO 9.0 (7.0-25.0); CREATININE SERUM 3.11 mg/dL (0.55-1.02); GFR 14.59; GLUCOSE FASTING 102.0 mg/dL (65-100); OSMOLALITY SERUM 281.0 MOSM/KG (275-295)
[2025-08-09] MEDS ORDERED: CARVEDILOL 6.25 MG TABLET PO SCH (09:00)
[2025-08-09 12:00] VITALS: BP 153/62; BP 177/58; O2SAT 100; O2SAT 95
[2025-08-09 15:19] VITALS: BP 160/45; O2SAT 100
[2025-08-09] MEDS ORDERED: PANTOPRAZOLE SODIUM 40 MG/VIAL VIAL IV NR (17:00)
[2025-08-09] MEDS ORDERED: NIFEDIPINE 30 MG TAB.SA.OSM PO SCH (17:00)
[2025-08-09 18:57] VITALS: O2SAT 100
[2025-08-09 20:21] VITALS: BP 160/60; O2SAT 100
[2025-08-09] MEDS ORDERED: PANTOPRAZOLE SODIUM 40 MG/VIAL VIAL IV SCH (21:00)
[2025-08-10 01:58] VITALS: BP 138/57; O2SAT 97
[2025-08-10 05:34] VITALS: O2SAT 90
[2025-08-10 08:02] VITALS: BP 123/57
[2025-08-10 08:20] LABS: BASO % 0.5 % (0.1-1.2); EOS # 0.24 (0.04-0.54); EOS % 3.0 % (0.7-7.0); LYMPH # 0.78 (1.18-3.74); LYMPH % 9.6 % (19.3-53.1); MEAN PLATELET VOLUME 10.10 fl (9.4-12.4); MONO # 0.77 (0.24-0.82); MONO % 9.5 % (4.7-12.5); NEUT # 6.26 (1.56-6.13); NEUT % 77.2 % (34.0-71.1); RED CELL DISTRIBUTION WIDTH 16.9 % (11.6-14.4)
[2025-08-10 08:46] VITALS: O2SAT 94
[2025-08-10] MEDS ORDERED: PANTOPRAZOLE SODIUM 40 MG/VIAL VIAL IV SCH (09:00)
[2025-08-10 09:01] LABS: ALT/SGPT 14.0 U/L (12-78); AST/SGOT 19.0 U/L (15-37); BILIRUBIN TOTAL 0.42 mg/dL (0.3-1.2); BUN CREA RATIO 9.0 (7.0-25.0); GFR 9.55; GLOBULINA 3.4 G/DL (2.4-3.5); GLUCOSE FASTING 163.0 mg/dL (65-100); OSMOLALITY SERUM 285.0 MOSM/KG (275-295)
[2025-08-10 09:08] LABS: CREATININE SERUM 4.49 mg/dL (0.55-1.02)
[2025-08-10] MEDS ORDERED: CARVEDILOL6.25 MG PO (12:39)
[2025-08-10] MEDS ORDERED: NIFEDIPINE ER30 M1 PO (12:40)
[2025-08-10] MEDS ORDERED: HYDRALAZINE HCL25 MG PO (12:41)
[2025-08-10] MEDS ORDERED: CARAFATE1 GM PO (12:41)
[2025-08-10] MEDS ORDERED: LEVOTHYROXINE50 MCG PO (12:41)
[2025-08-10] MEDS ORDERED: PANTOPRAZOLE SO40 MG PO (12:41)
== END 2025-08-10 13:17 | disposition home or self-care (01) | DRG 377 ==
LOC: ER 19:18 → ICU-2 22:43 → ICU 22:43 → MEDJ 08-09 18:33
PROVIDERS: General Practice; Internal Medicine; ADMIT Internal Medicine; ATTEND Internal Medicine
PROC: B246ZZZ Ultrasonography of Right and Left Heart (ICD-10-PCS; 2025-08-06)
PROC: 4A12X4Z Monitoring of Cardiac Electrical Activity, External Approach (ICD-10-PCS; 2025-08-07)
PROC: 5A1D70Z Performance of Urinary Filtration, Intermittent, Less than 6 Hours Per Day (ICD-10-PCS; 2025-08-07)
PROC: 30233N1 Transfusion of Nonautologous Red Blood Cells into Peripheral Vein, Percutaneous Approach (ICD-10-PCS; 2025-08-07)
PROC: 3E0F7GC Introduction of Other Therapeutic Substance into Respiratory Tract, Via Natural or Artificial Opening (ICD-10-PCS; 2025-08-07)
PROC: 0DJ08ZZ Inspection of Upper Intestinal Tract, Via Natural or Artificial Opening Endoscopic (ICD-10-PCS; principal; 2025-08-08)
PROC: 5A1D70Z Performance of Urinary Filtration, Intermittent, Less than 6 Hours Per Day (ICD-10-PCS; 2025-08-08)
PROC: 8E0ZXY6 Isolation (ICD-10-PCS; 2025-08-09)
DX: K31.811 Angiodysplasia of stomach and duodenum with bleeding (principal); N18.6 End stage renal disease; I13.2 Hypertensive heart and chronic kidney disease with heart failure and with stage 5 chronic kidney disease, or end stage renal disease; K76.6 Portal hypertension; L97.829 Non-pressure chronic ulcer of other part of left lower leg with unspecified severity; I83.028 Varicose veins of left lower extremity with ulcer other part of lower leg; I50.83 High output heart failure; D63.8 Anemia in other chronic diseases classified elsewhere; E11.22 Type 2 diabetes mellitus with diabetic chronic kidney disease; D64.89 Other specified anemias; E11.622 Type 2 diabetes mellitus with other skin ulcer; K44.9 Diaphragmatic hernia without obstruction or gangrene; I27.20 Pulmonary hypertension, unspecified; R53.83 Other fatigue; E03.9 Hypothyroidism, unspecified; Z99.2 Dependence on renal dialysis; Z79.4 Long term (current) use of insulin; F17.200 Nicotine dependence, unspecified, uncomplicated

== ENCOUNTER 2025-08-26 06:16 | Inpatient (IN) | payer OTHER ==
[~2025-08-26] VITALS: Ht 152.4 cm; Wt 68.0 kg
[2025-08-26] VITALS (9 sets, daily range): BP systolic 78–114; BP diastolic 31–50; O2SAT 97–100
[~2025-08-26 06:16] MED LIST changes: +CARVEDILOL6.25 MG PO; +HYDRALAZINE HCL25 MG PO; +LEVOTHYROXINE50 MCG PO; +NIFEDIPINE ER30 M1 PO
--- NOTE | 2025-08-26 06:42 | NUR ---
SE RECIBE PACIENTE ALERTA Y [id number] X3. ACOMPANADA DE KESSLER ESPOSO . QUIEN INDICA QUE LA PACIENTE AL LEVANTARSE EN EL [facility] SE CALLO Y SE LEIGH EN EL [facility] Y QUE [place] PRESENTADO EN EL [facility] VOMITOS Y DIARREAS CON NICOL. SE PROCEDE A MURALI S/V AL PACIENTE Y SE LE REALIZA EKG. EL MISMO EVALUADO POR EL DR. GARNETT. SE PROCEDE A [facility] A LA PACIENTE EN ANA 6 CON BARANDAS ELEVADAS Y NIVEL MAS BVAJO DE LA MSIMA.
[2025-08-26] MEDS ORDERED: ONDANSETRON HCL 2 MG/ML VIAL IV ONE (07:15)
[2025-08-26] MEDS ORDERED: 0.9 % SODIUM CHLORIDE 500 ML IV ONE ×2 (07:15→07:30)
[2025-08-26] MEDS ORDERED: PANTOPRAZOLE SODIUM 40 MG/VIAL VIAL IV PUSH ONE (07:15)
[2025-08-26] MEDS ORDERED: ONDANSETRON HCL 2 MG/ML VIAL ONE ×2 (07:16→12:14)
[2025-08-26 08:10] LABS: BASO % 0.2 % (0.1-1.2); EOS # 0.05 (0.04-0.54); EOS % 0.6 % (0.7-7.0); LYMPH # 0.88 (1.18-3.74); LYMPH % 10.8 % (19.3-53.1); MEAN PLATELET VOLUME 10.30 fl (9.4-12.4); MONO # 0.39 (0.24-0.82); MONO % 4.8 % (4.7-12.5); NEUT # 6.82 (1.56-6.13); NEUT % 83.4 % (34.0-71.1); RED CELL DISTRIBUTION WIDTH 19.5 % (11.6-14.4)
[2025-08-26 08:47] LABS: INR 1.15
--- NOTE | 2025-08-26 09:49 | NUR ---
SE ORIENTA PTE SOBRE TX A SEGUIR, LA MISMA REFIERE ENTENDER. SALVADOR PAUL WENCESLAO MUESTRAS DE LAB, CANALIZA Y ADMINISTRA MED CRYSTAL ORDEN MEDICA. TAMBIEN WENCESLAO MUESTRAS DE TUBOS PILOTOS Y REQUIZA 2 U DE PRBCS Y LO LLEVA A LAB. SE INSERTA REYES BAJO MEDIDAS ESTERILES. SE UBICA PTE EN UNIDAD DE CRITICO EN CAMA #1 CON BARANDAS ELEVADAS POR SEGURIDAD Y SE CONECTA A MONITOR CARDIACO Y OXIMETRIA DE PULSO CONTINUA
[2025-08-26 10:11] LABS: BUN CREA RATIO 16.0 (7.0-25.0); CREATININE SERUM 3.69 mg/dL (0.55-1.02); GFR 11.95; GLUCOSE FASTING 198.0 mg/dL (65-100); OSMOLALITY SERUM 300.0 MOSM/KG (275-295)
[2025-08-26] MEDS ORDERED: OCTREOTIDE ACETATE 0.05MG/ML (50MCG/ML) AMPUL IV ONE (10:45)
[2025-08-26 10:50] LABS: URINE APPEARANCE Clear; URINE BILIRRUBIN Negative (NEGATIVE); URINE BLOOD Negative; URINE COLOR Yellow; URINE KETONE Negative (NEGATIVE); URINE LEUKOCYTE Trace; URINE NITRATE Negative; URINE UROBILINOGEN 0.2 E.U./dl
[2025-08-26 10:54] LABS: URINE BACTERIA 64.7 uL (0.0-1933); URINE CAST 1.90 uL (0.0-1.40); URINE EPITHELIAL CELLS 10.6 uL (0.0-38.8); URINE RBC 4.1 uL (0.0-20.8); URINE WBC 17.9 uL (0.0-23.2)
[2025-08-26 11:02] LABS: URINE GLUCOSE 250 MG/DL (NEGATIVE); URINE PROTEIN 300 (NEGATIVE)
[2025-08-26 11:03] LABS: TYPE CELLS SQUAMOUS
[2025-08-26] MEDS ORDERED: OCTREOTIDE ACETATE 0.05MG/ML (50MCG/ML) AMPUL ONE (12:05)
[2025-08-26] MEDS ORDERED: ONDANSETRON HCL 2 MG/ML VIAL IV STA (12:14)
[2025-08-26] MEDS ORDERED: DEXTROSE 50 % IN WATER 0.5 G/ML DISP.SYRIN IV PRN (13:15)
[2025-08-26] MEDS ORDERED: INSULIN LISPRO 1,000 UNIT/10 ML UNITS SUBCUTANEO PRN (13:15)
[2025-08-26] MEDS ORDERED: CIPROFLOXACIN IN 5 % DEXTROSE 200 ML IV SCH (13:17)
[2025-08-26] MEDS ORDERED: PANTOPRAZOLE SODIUM 40 MG/VIAL VIAL IV PUSH SCH ×2 (13:18→21:00)
[2025-08-26] MEDS ORDERED: CIPROFLOXACIN IN 5 % DEXTROSE 400 MG/200 ML PIGGYBAG IV ONE ×2 (13:29→20:22)
[2025-08-26] MEDS ORDERED: METRONIDAZOLE/SODIUM CHLORIDE 500 MG/100 ML PIGGYBACK IV ONE (13:29)
[2025-08-26] MEDS ORDERED: ONDANSETRON HCL 4 MG in 0.9 % SODIUM CHLORIDE 50 ML IV PRN (13:30)
[2025-08-26] MEDS ORDERED: 0.9 % SODIUM CHLORIDE 1,000 ML IV SCH (13:30)
[2025-08-26] MEDS ORDERED: LABETALOL HCL 100 MG/20 ML ML IV PUSH PRN (13:30)
[2025-08-26] MEDS ORDERED: OCTREOTIDE ACETATE 1,250 MCG in 0.9 % SODIUM CHLORIDE 250 ML IV SCH (13:45)
[2025-08-26 13:59] LABS: ABG PH 7.480 (7.35-7.45); ABG PO2 84.3 mmHg (80-100); BICARBONATE 28.5 mmol/l (23-25)
[2025-08-26 14:13] LABS: o2 32 %
[2025-08-26 17:17] LABS: ob POSITIVE (NEGATIVE)
[2025-08-27] VITALS (21 sets, daily range): BP systolic 98–157; BP diastolic 30–97; O2SAT 94–100
[2025-08-27] MEDS ORDERED: ACETAMINOPHEN 500 MG GEL..CAP PO ONE (00:01)
[2025-08-27] MEDS ORDERED: NOREPINEPHRINE BITARTRATE 1 MG/ML AMPUL IV ONE (00:55)
[2025-08-27] MEDS ORDERED: NOREPINEPHRINE BITARTRATE 1 MG/ML AMPUL IV STA (01:08)
[2025-08-27] MEDS ORDERED: NOREPINEPHRINE BITARTRATE 4 MG in DEXTROSE 5 % IN WATER 250 ML IV SCH (05:30)
[2025-08-27] MEDS ORDERED: LEVOTHYROXINE SODIUM 50 MCG TABLET PO SCH (06:00)
[2025-08-27] MEDS ORDERED: PANTOPRAZOLE SODIUM 40 MG/VIAL VIAL IV PUSH SCH (09:00)
[2025-08-27] MEDS ORDERED: SOD FERRIC GLUC COMPLX/SUCROSE 62.5 MG/5 ML AMPUL IV SCH (10:40)
[2025-08-27 10:46] LABS: D DIMER 2.21 MG/L; INR 1.04
[2025-08-27 11:02] LABS: FE 36.0 ug/dl (50-170)
[2025-08-27 12:02] LABS: BASO % 0.3 % (0.1-1.2); EOS # 0.05 (0.04-0.54); EOS % 0.5 % (0.7-7.0); LYMPH # 1.21 (1.18-3.74); LYMPH % 11.1 % (19.3-53.1); MEAN PLATELET VOLUME 9.40 fl (9.4-12.4); MONO # 0.92 (0.24-0.82); MONO % 8.4 % (4.7-12.5); NEUT # 8.68 (1.56-6.13); NEUT % 79.5 % (34.0-71.1); RED CELL DISTRIBUTION WIDTH 17.2 % (11.6-14.4)
[2025-08-27 12:25] LABS: COL ADP 209 SECONDS (56-102)
[2025-08-27 12:26] LABS: COL EPI >300 SECONDS (82-175)
[2025-08-27] MEDS ORDERED: SODIUM CL 0.9% 250 ML IV.SOLN ONE ×2 (13:22)
[2025-08-27 13:38] LABS: FOLIC ACID > 20.00 ng/ml (4.78-20)
[2025-08-27] MEDS ORDERED: OCTREOTIDE ACETATE 1,250 MCG in 0.9 % SODIUM CHLORIDE 250 ML IV SCH (14:00)
[2025-08-27 22:25] LABS: INR 1.1
[2025-08-28] VITALS (18 sets, daily range): BP systolic 101–141; BP diastolic 37–75; O2SAT 96–100
[2025-08-28] MEDS ORDERED: NOREPINEPHRINE BITARTRATE 8 MG in DEXTROSE 5 % IN WATER 250 ML IV SCH (05:30)
[2025-08-28 08:49] LABS: BASO % 0.3 % (0.1-1.2); EOS # 0.21 (0.04-0.54); EOS % 1.8 % (0.7-7.0); LYMPH # 0.93 (1.18-3.74); LYMPH % 7.9 % (19.3-53.1); MEAN PLATELET VOLUME 10.30 fl (9.4-12.4); MONO # 0.88 (0.24-0.82); MONO % 7.5 % (4.7-12.5); NEUT # 9.70 (1.56-6.13); NEUT % 82.2 % (34.0-71.1); RED CELL DISTRIBUTION WIDTH 18.4 % (11.6-14.4)
[2025-08-28 09:35] LABS: BUN CREA RATIO 14.0 (7.0-25.0); CREATININE SERUM 3.43 mg/dL (0.55-1.02); GFR 13.0; GLUCOSE FASTING 87.0 mg/dL (65-100); OSMOLALITY SERUM 287.0 MOSM/KG (275-295)
[2025-08-28 10:27] LABS: COL EPI 125 SECONDS (82-175)
[2025-08-28] MEDS ORDERED: FLUMAZENIL 0.5 MG/5 ML ML IV ONE (12:12)
[2025-08-28] MEDS ORDERED: GLUCAGON 1 MG VIAL ONE (12:13)
[2025-08-28] MEDS ORDERED: MIDAZOLAM HCL 2 MG/2 ML VIAL IV ONE (13:00)
[2025-08-28 14:00] LABS: CORTISOL 14.15 ug/dl
[2025-08-28] MEDS ORDERED: TRAMADOL HCL 50 MG TABLET PO PRN (18:15)
[2025-08-28 20:43] LABS: URINE APPEARANCE Clear; URINE BILIRRUBIN Negative (NEGATIVE); URINE BLOOD Trace; URINE COLOR Yellow; URINE KETONE Negative (NEGATIVE); URINE LEUKOCYTE Trace; URINE NITRATE Negative; URINE UROBILINOGEN 0.2 E.U./dl
[2025-08-28 20:46] LABS: URINE BACTERIA 13.2 uL (0.0-1933); URINE EPITHELIAL CELLS 2.7 uL (0.0-38.8); URINE RBC 5.5 uL (0.0-20.8); URINE WBC 11.9 uL (0.0-23.2)
[2025-08-28 20:57] LABS: URINE CAST 0.14 uL (0.0-1.40); URINE GLUCOSE 250 MG/DL (NEGATIVE); URINE PROTEIN 300 (NEGATIVE)
[2025-08-29] VITALS (12 sets, daily range): BP systolic 107–171; BP diastolic 40–80; O2SAT 98–100
[2025-08-29 06:55] LABS: BASO % 0.4 % (0.1-1.2); EOS # 0.15 (0.04-0.54); EOS % 2.0 % (0.7-7.0); LYMPH # 0.76 (1.18-3.74); LYMPH % 9.9 % (19.3-53.1); MEAN PLATELET VOLUME 10.10 fl (9.4-12.4); MONO # 0.64 (0.24-0.82); MONO % 8.3 % (4.7-12.5); NEUT # 6.07 (1.56-6.13); NEUT % 79.1 % (34.0-71.1); RED CELL DISTRIBUTION WIDTH 18.5 % (11.6-14.4)
[2025-08-29 07:28] LABS: BUN CREA RATIO 14.0 (7.0-25.0); GFR 9.99; GLUCOSE FASTING 140.0 mg/dL (65-100); OSMOLALITY SERUM 293.0 MOSM/KG (275-295)
[2025-08-29 07:33] LABS: CREATININE SERUM 4.31 mg/dL (0.55-1.02)
[2025-08-29] MEDS ORDERED: CIPROFLOXACIN IN 5 % DEXTROSE 200 ML IV SCH (21:00)
[2025-08-30] VITALS (9 sets, daily range): BP systolic 112–175; BP diastolic 49–94; O2SAT 98–117
[2025-08-30 07:47] LABS: BASO % 0.4 % (0.1-1.2); EOS # 0.16 (0.04-0.54); EOS % 3.0 % (0.7-7.0); LYMPH # 0.54 (1.18-3.74); LYMPH % 10.0 % (19.3-53.1); MEAN PLATELET VOLUME 10.30 fl (9.4-12.4); MONO # 0.51 (0.24-0.82); MONO % 9.4 % (4.7-12.5); NEUT # 4.16 (1.56-6.13); NEUT % 76.6 % (34.0-71.1); RED CELL DISTRIBUTION WIDTH 18.1 % (11.6-14.4)
[2025-08-30] MEDS ORDERED: PANTOPRAZOLE SODIUM 40 MG TABLET.DR PO SCH (09:00)
[2025-08-30] MEDS ORDERED: AMIODARONE HCL 900 MG/500 ML KIT IV ONE (18:18)
[2025-08-30] MEDS ORDERED: AMIODARONE HCL 50 MG/ML AMPUL IV ONE (18:18)
[2025-08-30] MEDS ORDERED: AMIODARONE HCL 50 MG/ML AMPUL IV STA (19:05)
[2025-08-30] MEDS ORDERED: AMIODARONE HCL 900 MG in DEXTROSE 5 % IN WATER 500 ML IV SCH (19:15)
[2025-08-30 20:18] LABS: BASO % 0.3 % (0.1-1.2); EOS # 0.12 (0.04-0.54); EOS % 1.9 % (0.7-7.0); LYMPH # 0.61 (1.18-3.74); LYMPH % 9.5 % (19.3-53.1); MEAN PLATELET VOLUME 10.20 fl (9.4-12.4); MONO # 0.49 (0.24-0.82); MONO % 7.6 % (4.7-12.5); NEUT # 5.19 (1.56-6.13); NEUT % 80.5 % (34.0-71.1); RED CELL DISTRIBUTION WIDTH 18.1 % (11.6-14.4)
[2025-08-30 20:35] LABS: ALT/SGPT 10.0 U/L (12-78); AST/SGOT 20.0 U/L (15-37); BILIRUBIN TOTAL 0.54 mg/dL (0.3-1.2); BUN CREA RATIO 12.0 (7.0-25.0); CREATININE SERUM 3.61 mg/dL (0.55-1.02); GFR 12.25; GLOBULINA 2.9 G/DL (2.4-3.5); OSMOLALITY SERUM 292.0 MOSM/KG (275-295)
[2025-08-30 20:44] LABS: GLUCOSE FASTING 213.0 mg/dL (65-100)
[2025-08-31] VITALS (11 sets, daily range): BP systolic 99–170; BP diastolic 50–63; O2SAT 97–100
[2025-08-31] MEDS ORDERED: CLONAZEPAM 0.5 MG TABLET PO STA (07:15)
[2025-08-31 07:30] LABS: BASO % 0.4 % (0.1-1.2); EOS # 0.11 (0.04-0.54); EOS % 1.5 % (0.7-7.0); LYMPH # 0.66 (1.18-3.74); LYMPH % 8.9 % (19.3-53.1); MEAN PLATELET VOLUME 10.30 fl (9.4-12.4); MONO # 0.65 (0.24-0.82); MONO % 8.7 % (4.7-12.5); NEUT # 5.96 (1.56-6.13); NEUT % 80.1 % (34.0-71.1); RED CELL DISTRIBUTION WIDTH 17.9 % (11.6-14.4)
[2025-08-31 07:47] LABS: ALT/SGPT 11.0 U/L (12-78); AST/SGOT 19.0 U/L (15-37); BILIRUBIN TOTAL 0.45 mg/dL (0.3-1.2); BUN CREA RATIO 12.0 (7.0-25.0); GFR 10.52; GLOBULINA 2.9 G/DL (2.4-3.5); GLUCOSE FASTING 78.0 mg/dL (65-100); OSMOLALITY SERUM 286.0 MOSM/KG (275-295)
[2025-08-31 07:53] LABS: CREATININE SERUM 4.12 mg/dL (0.55-1.02)
[2025-08-31] MEDS ORDERED: CARVEDILOL 3.125 MG TABLET PO NR (11:00)
[2025-08-31] MEDS ORDERED: LACTOBACILLUS ACIDOPHILUS 1 CAP CAP PO SCH (17:00)
[2025-08-31] MEDS ORDERED: CARVEDILOL 3.125 MG TABLET PO SCH (21:00)
[2025-09-01] VITALS (7 sets, daily range): BP systolic 143–174; BP diastolic 39–55; O2SAT 97–100
[2025-09-01 10:27] LABS: BASO % 0.6 % (0.1-1.2); EOS # 0.21 (0.04-0.54); EOS % 2.9 % (0.7-7.0); LYMPH # 0.76 (1.18-3.74); LYMPH % 10.6 % (19.3-53.1); MEAN PLATELET VOLUME 10.60 fl (9.4-12.4); MONO # 0.55 (0.24-0.82); MONO % 7.7 % (4.7-12.5); NEUT # 5.55 (1.56-6.13); NEUT % 77.4 % (34.0-71.1); RED CELL DISTRIBUTION WIDTH 17.8 % (11.6-14.4)
[2025-09-01 11:27] LABS: ALT/SGPT 11.0 U/L (12-78); AST/SGOT 19.0 U/L (15-37); BILIRUBIN TOTAL 0.45 mg/dL (0.3-1.2); BUN CREA RATIO 14.0 (7.0-25.0); GFR 8.95; GLOBULINA 2.9 G/DL (2.4-3.5); GLUCOSE FASTING 117.0 mg/dL (65-100); OSMOLALITY SERUM 294.0 MOSM/KG (275-295)
[2025-09-01 11:51] LABS: CKMB 4.3 NG/ML (0.5-3.6)
[2025-09-01 11:53] LABS: CREATININE SERUM 4.74 mg/dL (0.55-1.02)
[2025-09-02 04:00] VITALS: BP 174/59; O2SAT 99
[2025-09-02 07:01] VITALS: BP 176/58; O2SAT 99
[2025-09-02 07:57] LABS: BASO % 0.5 % (0.1-1.2); EOS # 0.24 (0.04-0.54); EOS % 3.8 % (0.7-7.0); LYMPH # 0.57 (1.18-3.74); LYMPH % 8.9 % (19.3-53.1); MEAN PLATELET VOLUME 10.30 fl (9.4-12.4); MONO # 0.56 (0.24-0.82); MONO % 8.8 % (4.7-12.5); NEUT # 4.98 (1.56-6.13); NEUT % 77.7 % (34.0-71.1); RED CELL DISTRIBUTION WIDTH 17.5 % (11.6-14.4)
[2025-09-02] MEDS ORDERED: AMIODARONE HCL 200 MG TABLET PO SCH (09:00)
[2025-09-02] MEDS ORDERED: CARVEDILOL 6.25 MG TABLET PO SCH (09:00)
[2025-09-02 12:09] VITALS: BP 158/47; O2SAT 100
[2025-09-02 15:27] VITALS: BP 154/50; O2SAT 100
[2025-09-02] MEDS ORDERED: EPOETIN ALFA-EPBX 10,000 UNIT/ML VIAL (Retacrit) SUBCUTANEO SCH (17:00)
[2025-09-02 20:00] VITALS: BP 172/62; O2SAT 100
[2025-09-02 23:30] VITALS: BP 158/45; O2SAT 95
[2025-09-03 04:00] VITALS: BP 145/53; O2SAT 100
[2025-09-03 07:08] VITALS: O2SAT 100
[2025-09-03 07:30] LABS: BUN CREA RATIO 11.0 (7.0-25.0); GFR 10.61; GLUCOSE FASTING 150.0 mg/dL (65-100); OSMOLALITY SERUM 292.0 MOSM/KG (275-295)
[2025-09-03 07:33] LABS: CREATININE SERUM 4.09 mg/dL (0.55-1.02)
[2025-09-03 12:00] VITALS: BP 128/72; O2SAT 98
[2025-09-03] MEDS ORDERED: Cyanocobalamin/Mecobalamin 1 TAB.SL SL NR (13:15)
[2025-09-03 15:39] VITALS: BP 183/52; O2SAT 100
[2025-09-03 22:31] VITALS: BP 169/72
[2025-09-04] VITALS (8 sets, daily range): BP systolic 160–173; BP diastolic 62–68; O2SAT 97–100
[2025-09-04] MEDS ORDERED: Cyanocobalamin/Mecobalamin 1 TAB.SL SL SCH (09:00)
[2025-09-04 21:00] LABS: BASO % 0.1 % (0.1-1.2); EOS # 0.10 (0.04-0.54); EOS % 1.4 % (0.7-7.0); LYMPH # 0.75 (1.18-3.74); LYMPH % 10.4 % (19.3-53.1); MEAN PLATELET VOLUME 10.10 fl (9.4-12.4); MONO # 0.45 (0.24-0.82); MONO % 6.2 % (4.7-12.5); NEUT # 5.90 (1.56-6.13); NEUT % 81.5 % (34.0-71.1); RED CELL DISTRIBUTION WIDTH 18.6 % (11.6-14.4)
[2025-09-05 00:43] VITALS: O2SAT 99
[2025-09-05 02:17] VITALS: BP 170/68; O2SAT 98
[2025-09-05 05:36] VITALS: O2SAT 99
[2025-09-05 05:40] VITALS: BP 176/66
[2025-09-05] MEDS ORDERED: CLONAZEPAM 0.5 MG TABLET PO ONE (07:30)
[2025-09-05] MEDS ORDERED: FUSION PLUS CA1 EACH PO (07:38)
[2025-09-05] MEDS ORDERED: CARVEDILOL6.25 MG PO (07:39)
[2025-09-05] MEDS ORDERED: AMIODARONE HCL200 MG PO (07:39)
[2025-09-05] MEDS ORDERED: INTESTINEX680 M1 PO (07:40)
[2025-09-05] MEDS ORDERED: CARAFATE1 GM PO (07:41)
[2025-09-05] MEDS ORDERED: PANTOPRAZOLE SO40 MG PO (07:41)
[2025-09-05] MEDS ORDERED: B Complex PO (07:48)
[2025-09-05] MEDS ORDERED: Neurin-Sl Tablet Sl SL (07:48)
[2025-09-05] MEDS ORDERED: IRBESARTAN150 MG PO (07:57)
[2025-09-05 09:10] VITALS: O2SAT 98
[2025-09-05 09:57] VITALS: BP 168/92; O2SAT 97
[2025-09-05] MEDS ORDERED: HEPARIN SODIUM,PORCINE 5,000 UNITS/ML VIAL ONE (09:57)
== END 2025-09-05 13:22 | disposition home or self-care (01) | DRG 377 ==
LOC: ER 06:16 → SEC-K 13:37 → ICU-2 13:37 → ICU 13:37 → ICU-2 13:47 → ICU 08-27 01:30 → MEDJ 09-03 19:16
PROVIDERS: Emergency Medicine; General Practice; Internal Medicine Hematology & Oncology; Internal Medicine Infectious Disease; ADMIT Internal Medicine; ATTEND Internal Medicine
PROC: 4A12X4Z Monitoring of Cardiac Electrical Activity, External Approach (ICD-10-PCS; 2025-08-26)
PROC: B020ZZZ Computerized Tomography (CT Scan) of Brain (ICD-10-PCS; 2025-08-26)
PROC: BR20ZZZ Computerized Tomography (CT Scan) of Cervical Spine (ICD-10-PCS; 2025-08-26)
PROC: BW21ZZZ Computerized Tomography (CT Scan) of Abdomen and Pelvis (ICD-10-PCS; 2025-08-26)
PROC: BT4JZZZ Ultrasonography of Kidneys and Bladder (ICD-10-PCS; 2025-08-26)
PROC: 05HM33Z Insertion of Infusion Device into Right Internal Jugular Vein, Percutaneous Approach (ICD-10-PCS; 2025-08-27)
PROC: CD171ZZ Planar Nuclear Medicine Imaging of Gastrointestinal Tract using Technetium 99m (Tc-99m) (ICD-10-PCS; 2025-08-27)
PROC: 30243N1 Transfusion of Nonautologous Red Blood Cells into Central Vein, Percutaneous Approach (ICD-10-PCS; 2025-08-27)
PROC: 30243K1 Transfusion of Nonautologous Frozen Plasma into Central Vein, Percutaneous Approach (ICD-10-PCS; 2025-08-27)
PROC: 5A1D70Z Performance of Urinary Filtration, Intermittent, Less than 6 Hours Per Day (ICD-10-PCS; 2025-08-27)
PROC: 0DJ08ZZ Inspection of Upper Intestinal Tract, Via Natural or Artificial Opening Endoscopic (ICD-10-PCS; principal; 2025-08-28)
PROC: 02HV33Z Insertion of Infusion Device into Superior Vena Cava, Percutaneous Approach (ICD-10-PCS; 2025-08-29)
PROC: B548ZZA Ultrasonography of Superior Vena Cava, Guidance (ICD-10-PCS; 2025-08-29)
PROC: 5A1D70Z Performance of Urinary Filtration, Intermittent, Less than 6 Hours Per Day (ICD-10-PCS; 2025-08-29)
PROC: 8E0ZXY6 Isolation (ICD-10-PCS; 2025-08-30)
PROC: B246ZZZ Ultrasonography of Right and Left Heart (ICD-10-PCS; 2025-08-31)
PROC: B54PZZZ Ultrasonography of Bilateral Upper Extremity Veins (ICD-10-PCS; 2025-08-31)
PROC: B34KZZZ Ultrasonography of Bilateral Upper Extremity Arteries (ICD-10-PCS; 2025-08-31)
PROC: 5A1D70Z Performance of Urinary Filtration, Intermittent, Less than 6 Hours Per Day (ICD-10-PCS; 2025-09-01)
PROC: 5A1D70Z Performance of Urinary Filtration, Intermittent, Less than 6 Hours Per Day (ICD-10-PCS; 2025-09-03)
PROC: 5A1D70Z Performance of Urinary Filtration, Intermittent, Less than 6 Hours Per Day (ICD-10-PCS; 2025-09-05)
DX: K31.811 Angiodysplasia of stomach and duodenum with bleeding (principal); I21.A1 Myocardial infarction type 2; N18.6 End stage renal disease; D62 Acute posthemorrhagic anemia; I12.0 Hypertensive chronic kidney disease with stage 5 chronic kidney disease or end stage renal disease; K76.6 Portal hypertension; K92.1 Melena; K31.89 Other diseases of stomach and duodenum; D64.89 Other specified anemias; D69.1 Qualitative platelet defects; K44.9 Diaphragmatic hernia without obstruction or gangrene; E11.65 Type 2 diabetes mellitus with hyperglycemia; S82.892A Other fracture of left lower leg, initial encounter for closed fracture; E11.22 Type 2 diabetes mellitus with diabetic chronic kidney disease; I27.20 Pulmonary hypertension, unspecified; F43.21 Adjustment disorder with depressed mood; E03.9 Hypothyroidism, unspecified; Z99.2 Dependence on renal dialysis; Z79.84 Long term (current) use of oral hypoglycemic drugs; W18.30XA Fall on same level, unspecified, initial encounter; Y92.9 Unspecified place or not applicable; Z66 Do not resuscitate

== ENCOUNTER 2025-10-12 09:28 | Inpatient (IN) | payer OTHER ==
[2025-10-12] VITALS (9 sets, daily range): BP systolic 104–165; BP diastolic 40–67; O2SAT 99–100
[~2025-10-12] VITALS: Ht 152.4 cm; Wt 68.0 kg
[~2025-10-12 09:28] MED LIST changes: +AMIODARONE HCL200 MG PO; +B Complex PO; +FUSION PLUS CA1 EACH PO
--- NOTE | 2025-10-12 10:29 | NUR ---
PACIENTE EVENTOS DE VOMITO DESDE ANDRÉS. LETARGICA , LLEGA EN SILLA DE JONATHAN. ASISTIDA POR HIJO.
[2025-10-12] MEDS ORDERED: PANTOPRAZOLE SODIUM 40 MG/VIAL VIAL IV STA (10:54)
[2025-10-12] MEDS ORDERED: ONDANSETRON HCL 2 MG/ML VIAL IV STA (10:54)
[2025-10-12] MEDS ORDERED: 0.9 % SODIUM CHLORIDE 1,000 ML IV SCH ×2 (11:00→14:30)
[2025-10-12] MEDS ORDERED: OCTREOTIDE ACETATE 0.05MG/ML (50MCG/ML) AMPUL IV STA (11:10)
[2025-10-12] MEDS ORDERED: CEFTRIAXONE SODIUM 1,000 MG VIAL IV STA (11:11)
[2025-10-12] MEDS ORDERED: OCTREOTIDE ACETATE 1,250 MCG in 0.9 % SODIUM CHLORIDE 250 ML IV SCH ×3 (11:15→17:00)
[2025-10-12] MEDS ORDERED: PANTOPRAZOLE SODIUM 80 MG in 0.9 % SODIUM CHLORIDE 100 ML IV SCH (11:15)
[2025-10-12 11:32] LABS: BASO % 0.3 % (0.1-1.2); EOS # 0.01 (0.04-0.54); EOS % 0.1 % (0.7-7.0); LYMPH # 0.94 (1.18-3.74); LYMPH % 12.3 % (19.3-53.1); MEAN PLATELET VOLUME 10.30 fl (9.4-12.4); MONO # 0.56 (0.24-0.82); MONO % 7.3 % (4.7-12.5); NEUT # 6.10 (1.56-6.13); NEUT % 79.6 % (34.0-71.1); RED CELL DISTRIBUTION WIDTH 17.9 % (11.6-14.4)
[2025-10-12 11:41] LABS: ERYTHROCYTE SEDIMENTATION RATE 23 mm/hr (0-30)
[2025-10-12 12:00] LABS: INR 1.26
[2025-10-12 12:12] LABS: ALT/SGPT 12.0 U/L (12-78); AST/SGOT 18.0 U/L (15-37); BILIRUBIN TOTAL 0.52 mg/dL (0.3-1.2); GLOBULINA 3.2 G/DL (2.4-3.5)
--- NOTE | 2025-10-12 12:22 | NUR ---
SE EDUCA A PACIENTE Y FAMILIAR SOBRE TRATAMIENTO MEDICO EL CUAL REFIERE ENTENDER. SE REALIZA WENCESLAO DE MUESTRAS BAJO MEDIDAS ASEPTICS Y CRYSTAL ORDEN MEDICA.
[2025-10-12] MEDS ORDERED: MORPHINE SULFATE 2 MG/ML SYRINGE IV STA (12:29)
[2025-10-12] MEDS ORDERED: ONDANSETRON HCL 2 MG/ML VIAL ONE ×2 (12:36→13:51)
[2025-10-12] MEDS ORDERED: CEFTRIAXONE SODIUM 1,000 MG VIAL ONE (12:36)
[2025-10-12] MEDS ORDERED: OCTREOTIDE ACETATE 0.05MG/ML (50MCG/ML) AMPUL ONE (12:36)
[2025-10-12 12:58] LABS: BUN CREA RATIO 14.0 (7.0-25.0); CREATININE SERUM 5.24 mg/dL (0.55-1.02); GFR 7.97; OSMOLALITY SERUM 310.0 MOSM/KG (275-295)
[2025-10-12 13:22] LABS: GLUCOSE FASTING 348.0 mg/dL (65-100)
--- NOTE | 2025-10-12 14:09 | NUR ---
SE RECIBE VISITA DE DR. ONOFRE GARCES QUIEN DA ORDEN DE PASAR PACIENTE A UNIDAD DE CHEST PAIN PARA INICIAR PROTOCOLO DE INTUBACION. SE LLAMA A PERSONAL DE TERAPIA RESPIRATORIA Y PERSONAL DE ANESTECIA PARA INICIAR PROCEEDIMIENTO. SE CONECTA A MONITOR CARDIACO Y OXIMETRIA DE PULSO CONTINUA. SE REALIZA CAMBIO DE PANAL AL MOMENTO PRESENTA EVACUACION MELENA ABUNDANTE. 1330 SE RECIBE PERSONAL DE DE TERAPIA RESPIRATORIA Y PERSONAL DE ANESTECIA 1332 SE ADMINISTRA MEDICAMENTO ETOMIDATE 20MG 1335 SE ADMINISTRA 3ML DE PROPOFOL 1336 SE REALIZA INTUBACION CON TUBO #7 FIJADO EN 24 COMISURA LABIAL POR SE INSERTA ANESTESISTA ALESHA.TUBO NASOGASTRICO EN FOSA NASAL DERECHA A SUCCION INTERMITENTE CON EGRESO COFFE GROUND PRESENTANDO AL MOMENTO 400ML. SE MANTIENE BAJO OBSERVACION PARA CONTINUACION DE TRATAMIENTO.
[2025-10-12] MEDS ORDERED: CHLORHEXIDINE GLUCONATE 15ML BRUSH KIT MM SCH (14:47)
--- NOTE | 2025-10-12 14:51 | NUR ---
DR. ONOFRE GARCES LLEGA A ER Y ORDENA QUE SE CANCELE ORDEN MEDICA DE 1 UNIDAD DE NICOL FRACCIONADA Y DOS UNIDADES DE NICOL COMPLETA INTRADIALISIS. DR. ONOFRE GARCES ORDENA QUE SE COLOQUE ORDEN DE PRBCS 3 UNIDADES COMPLETAS INTRADIALISIS. SE LE REPITE ORDEN VERBAL A DR. ONOFRE GARCES SOBRE ORDEN DE 3 UNIDADES DE PRBCS COMPLETAS INTRADIALISIS Y REFIERE QUE ESTA CORRECTA. SE REALIZA DOCUMENTO DE REQUISICION DE NICOL Y SE ENTREGA A LABORATORIOS. PERSONAL DE LABORATORIOS PATRICA REFIERE QUE DOCUMENTO SE ENCUENTRA CORRECTO.
[2025-10-12] MEDS ORDERED: DEXTROSE 50 % IN WATER 0.5 G/ML DISP.SYRIN IV PRN (16:45)
[2025-10-12] MEDS ORDERED: INSULIN LISPRO 1,000 UNIT/10 ML UNITS SUBCUTANEO PRN (16:45)
[2025-10-12] MEDS ORDERED: POLYVINYL ALCOHOL 15 ML DROPS OP SCH (17:00)
[2025-10-12] MEDS ORDERED: PROPOFOL 100 ML IV SCH (19:00)
[2025-10-12] MEDS ORDERED: PROPOFOL 10,000 MCG/ML VIAL IV SCH (19:00)
[2025-10-13] VITALS (15 sets, daily range): BP systolic 106–158; BP diastolic 36–59; O2SAT 99–100
[2025-10-13 00:12] LABS: URINE APPEARANCE Clear; URINE BILIRRUBIN Negative (NEGATIVE); URINE BLOOD Trace; URINE COLOR Dark Yellow; URINE KETONE Trace (NEGATIVE); URINE LEUKOCYTE Trace; URINE NITRATE Negative; URINE UROBILINOGEN 1.0 E.U./dl
[2025-10-13 00:16] LABS: URINE BACTERIA 519.5 uL (0.0-1933); URINE CAST 2.78 uL (0.0-1.40); URINE EPITHELIAL CELLS 43.5 uL (0.0-38.8); URINE RBC 16.5 uL (0.0-20.8); URINE WBC 34.3 uL (0.0-23.2)
[2025-10-13 00:51] LABS: URINE EPITHELIAL CELLS 0-4 /HPF; URINE GLUCOSE 500 MG/DL (NEGATIVE); URINE PROTEIN 300 (NEGATIVE)
[2025-10-13 07:13] LABS: INR 1.15
[2025-10-13] MEDS ORDERED: PROPOFOL 100 ML IV SCH (07:15)
[2025-10-13 12:53] LABS: BASO % 0.2 % (0.1-1.2); EOS # 0.00 (0.04-0.54); EOS % 0.0 % (0.7-7.0); LYMPH # 0.92 (1.18-3.74); LYMPH % 6.6 % (19.3-53.1); MEAN PLATELET VOLUME 10.50 fl (9.4-12.4); MONO # 1.30 (0.24-0.82); MONO % 9.3 % (4.7-12.5); NEUT # 11.72 (1.56-6.13); NEUT % 83.6 % (34.0-71.1); RED CELL DISTRIBUTION WIDTH 16.8 % (11.6-14.4)
[2025-10-13] MEDS ORDERED: POLYVINYL ALCOHOL 15 ML DROPS OP SCH (17:00)
[2025-10-13] MEDS ORDERED: CHLORHEXIDINE GLUCONATE 15ML BRUSH KIT MM SCH (17:00)
[2025-10-14 04:00] VITALS: BP 156/54; O2SAT 100
[2025-10-14 06:20] LABS: BASO % 0.3 % (0.1-1.2); EOS # 0.01 (0.04-0.54); EOS % 0.1 % (0.7-7.0); LYMPH # 0.70 (1.18-3.74); LYMPH % 5.9 % (19.3-53.1); MEAN PLATELET VOLUME 10.50 fl (9.4-12.4); MONO # 0.89 (0.24-0.82); MONO % 7.5 % (4.7-12.5); NEUT # 10.14 (1.56-6.13); NEUT % 85.9 % (34.0-71.1); RED CELL DISTRIBUTION WIDTH 17.0 % (11.6-14.4)
[2025-10-14 07:26] VITALS: BP 158/55; O2SAT 100
[2025-10-14 07:30] LABS: ALT/SGPT 13.0 U/L (12-78); AST/SGOT 18.0 U/L (15-37); BILIRUBIN TOTAL 0.52 mg/dL (0.3-1.2); BUN CREA RATIO 15.0 (7.0-25.0); GFR 9.88; GLOBULINA 3.0 G/DL (2.4-3.5)
[2025-10-14 07:34] LABS: CREATININE SERUM 4.35 mg/dL (0.55-1.02); GLUCOSE FASTING 241.0 mg/dL (65-100); OSMOLALITY SERUM 304.0 MOSM/KG (275-295)
[2025-10-14] MEDS ORDERED: DEXTROSE 5%-WATER 100ML IV.SOLN ONE ×3 (09:21→23:29)
[2025-10-14 12:00] VITALS: BP 165/53; O2SAT 99
[2025-10-14 16:00] VITALS: BP 160/55; O2SAT 100
[2025-10-14] MEDS ORDERED: GENTAMICIN SULFATE 40 MG/ML VIAL IV NR (18:30)
[2025-10-14 20:00] VITALS: BP 150/56; O2SAT 100
[2025-10-14 21:57] LABS: URINE APPEARANCE Clear; URINE BILIRRUBIN Negative (NEGATIVE); URINE BLOOD Small; URINE COLOR Yellow; URINE KETONE Trace (NEGATIVE); URINE LEUKOCYTE Small; URINE NITRATE Negative; URINE UROBILINOGEN 1.0 E.U./dl
[2025-10-14 22:00] LABS: URINE BACTERIA 416.3 uL (0.0-1933); URINE CAST 2.49 uL (0.0-1.40); URINE EPITHELIAL CELLS 19.5 uL (0.0-38.8); URINE RBC 25.8 uL (0.0-20.8)
[2025-10-14 22:35] LABS: URINE GLUCOSE 250 MG/DL (NEGATIVE); URINE MUCUS SCANT; URINE PROTEIN 300 (NEGATIVE)
[2025-10-14 22:36] LABS: TYPE CELLS SQUAMOUS; URINE YEAST FEW /hpf
[2025-10-14 22:37] LABS: URINE WBC 243.3 uL (0.0-23.2)
[2025-10-14 23:07] VITALS: BP 139/54; O2SAT 100
[2025-10-15] VITALS (8 sets, daily range): BP systolic 115–165; BP diastolic 38–64; O2SAT 100
[2025-10-15] MEDS ORDERED: GENTAMICIN SULFATE 2.5 MG/ML (Adulto) IV SCH ×2 (07:00)
[2025-10-15 07:28] LABS: BASO % 0.5 % (0.1-1.2); EOS # 0.11 (0.04-0.54); EOS % 1.1 % (0.7-7.0); LYMPH # 0.89 (1.18-3.74); LYMPH % 8.5 % (19.3-53.1); MEAN PLATELET VOLUME 10.60 fl (9.4-12.4); MONO # 0.60 (0.24-0.82); MONO % 5.7 % (4.7-12.5); NEUT # 8.78 (1.56-6.13); NEUT % 83.9 % (34.0-71.1); RED CELL DISTRIBUTION WIDTH 17.1 % (11.6-14.4)
[2025-10-15 10:12] LABS: BAND MAN 30.0 %; BASOPHIL MAN 1.0 %; EOSINOPHIL MAN 6.0 %; LYMPHOCYTE MAN 7.0 %; MONOCYTE MAN 3.0 %; NEUTROPHILS MAN 52.0 %
[2025-10-15] MEDS ORDERED: DEXTROSE 5%-WATER 100ML IV.SOLN ONE ×2 (16:35→23:34)
[2025-10-15] MEDS ORDERED: CIPROFLOXACIN IN 5 % DEXTROSE 400 MG/200 ML PIGGYBAG IV SCH (17:00)
[2025-10-15] MEDS ORDERED: PANTOPRAZOLE SODIUM 40 MG/VIAL VIAL IV PUSH SCH (21:00)
[2025-10-16] VITALS (23 sets, daily range): BP systolic 117–170; BP diastolic 33–91; O2SAT 97–100
[2025-10-16 01:53] LABS: BASO % 0.2 % (0.1-1.2); EOS # 0.08 (0.04-0.54); EOS % 0.8 % (0.7-7.0); LYMPH # 0.59 (1.18-3.74); LYMPH % 6.2 % (19.3-53.1); MEAN PLATELET VOLUME 10.40 fl (9.4-12.4); MONO # 0.54 (0.24-0.82); MONO % 5.7 % (4.7-12.5); NEUT # 8.26 (1.56-6.13); NEUT % 86.8 % (34.0-71.1); RED CELL DISTRIBUTION WIDTH 16.6 % (11.6-14.4)
[2025-10-16 02:43] LABS: ALT/SGPT 10.0 U/L (12-78); AST/SGOT 16.0 U/L (15-37); BILIRUBIN TOTAL 2.47 mg/dL (0.3-1.2); BUN CREA RATIO 12.0 (7.0-25.0); CREATININE SERUM 3.1 mg/dL (0.55-1.02); GFR 14.61; GLOBULINA 3.1 G/DL (2.4-3.5); GLUCOSE FASTING 118.0 mg/dL (65-100); OSMOLALITY SERUM 287.0 MOSM/KG (275-295)
[2025-10-16] MEDS ORDERED: NOREPINEPHRINE BITARTRATE 1 MG/ML AMPUL IV ONE (04:39)
[2025-10-16] MEDS ORDERED: NOREPINEPHRINE BITARTRATE 8 MG in DEXTROSE 5 % IN WATER 250 ML IV SCH (05:00)
[2025-10-16] MEDS ORDERED: POTASSIUM CHLORIDE 20MEQ/100ML H2O PB IV NR (12:00)
[2025-10-16] MEDS ORDERED: DEXTROSE 5%-WATER 100ML IV.SOLN ONE ×2 (12:25→16:53)
[2025-10-16] MEDS ORDERED: VANCOMYCIN HCL 1,000 MG VIAL IV NR (16:15)
[2025-10-16] MEDS ORDERED: PHENOL 177 ML BOTTLE MM SCH (17:00)
[2025-10-17] VITALS (24 sets, daily range): BP systolic 101–164; BP diastolic 31–70; O2SAT 96–100
[2025-10-17 06:31] LABS: BASO % 0.3 % (0.1-1.2); EOS # 0.09 (0.04-0.54); EOS % 0.7 % (0.7-7.0); LYMPH # 1.13 (1.18-3.74); LYMPH % 8.6 % (19.3-53.1); MEAN PLATELET VOLUME 10.50 fl (9.4-12.4); MONO # 0.84 (0.24-0.82); MONO % 6.4 % (4.7-12.5); NEUT # 10.95 (1.56-6.13); NEUT % 83.5 % (34.0-71.1); RED CELL DISTRIBUTION WIDTH 16.6 % (11.6-14.4)
[2025-10-17 07:14] LABS: ALT/SGPT 8.0 U/L (12-78); AST/SGOT 15.0 U/L (15-37); BILIRUBIN TOTAL 3.4 mg/dL (0.3-1.2); BUN CREA RATIO 11.0 (7.0-25.0); GFR 9.26; GLOBULINA 3.2 G/DL (2.4-3.5); GLUCOSE FASTING 176.0 mg/dL (65-100); OSMOLALITY SERUM 288.0 MOSM/KG (275-295)
[2025-10-17 07:21] LABS: CREATININE SERUM 4.6 mg/dL (0.55-1.02)
[2025-10-17] MEDS ORDERED: MIDODRINE HCL 5 MG TABLET PO SCH ×2 (09:00→17:00)
[2025-10-17] MEDS ORDERED: VANCOMYCIN HCL 500 MG VIAL IV SCH (10:00)
[2025-10-17] MEDS ORDERED: VITAMIN B COMPLEX/LYSINE 15 ML BLIST.PACK PO SCH (12:00)
[2025-10-17] MEDS ORDERED: MIDODRINE HCL 5 MG TABLET PO NR (14:00)
[2025-10-17] MEDS ORDERED: FLUCONAZOLE IN NACL,ISO-OSM 200 MG/100 ML PIGGYBAG IV NR (20:00)
[2025-10-17] MEDS ORDERED: FLUCONAZOLE IN NACL,ISO-OSM 200 MG/100 ML PIGGYBAG IV ONE (20:14)
[2025-10-17] MEDS ORDERED: DEXTROSE 5%-WATER 100ML IV.SOLN ONE (20:18)
[2025-10-18] VITALS (22 sets, daily range): BP systolic 102–155; BP diastolic 29–81; O2SAT 97–100
[2025-10-18 08:08] LABS: ALT/SGPT 9.0 U/L (12-78); AST/SGOT 13.0 U/L (15-37); BILIRUBIN TOTAL 3.64 mg/dL (0.3-1.2); BUN CREA RATIO 9.0 (7.0-25.0); CREATININE SERUM 3.84 mg/dL (0.55-1.02); GFR 11.41; GLOBULINA 3.1 G/DL (2.4-3.5); GLUCOSE FASTING 187.0 mg/dL (65-100); OSMOLALITY SERUM 285.0 MOSM/KG (275-295)
[2025-10-18 08:33] LABS: BASO % 0.9 % (0.1-1.2); EOS # 0.26 (0.04-0.54); EOS % 2.9 % (0.7-7.0); LYMPH # 0.77 (1.18-3.74); LYMPH % 8.6 % (19.3-53.1); MEAN PLATELET VOLUME 11.00 fl (9.4-12.4); MONO # 0.49 (0.24-0.82); MONO % 5.5 % (4.7-12.5); NEUT # 7.34 (1.56-6.13); NEUT % 81.7 % (34.0-71.1); RED CELL DISTRIBUTION WIDTH 16.9 % (11.6-14.4)
[2025-10-18] MEDS ORDERED: 0.9 % SODIUM CHLORIDE 250 ML IV SCH (11:18)
[2025-10-18] MEDS ORDERED: VANCOMYCIN HCL 125 MG CAPSULE PO SCH (12:00)
[2025-10-18] MEDS ORDERED: MIDODRINE HCL 5 MG TABLET PO SCH (13:00)
[2025-10-18] MEDS ORDERED: FLUCONAZOLE IN NACL,ISO-OSM 2 MG/ML ML IV SCH (17:00)
[2025-10-19] VITALS (23 sets, daily range): BP systolic 98–177; BP diastolic 33–72; O2SAT 85–100
[2025-10-19] MEDS ORDERED: 0.9 % SODIUM CHLORIDE 250 ML IV STA (17:45)
[2025-10-20] VITALS (10 sets, daily range): BP systolic 118–153; BP diastolic 36–44; O2SAT 98–100
[2025-10-20 06:42] LABS: BASO % 0.8 % (0.1-1.2); EOS # 0.31 (0.04-0.54); EOS % 3.3 % (0.7-7.0); LYMPH # 1.05 (1.18-3.74); LYMPH % 11.0 % (19.3-53.1); MEAN PLATELET VOLUME 10.50 fl (9.4-12.4); MONO # 0.51 (0.24-0.82); MONO % 5.4 % (4.7-12.5); NEUT # 7.49 (1.56-6.13); NEUT % 78.8 % (34.0-71.1); RED CELL DISTRIBUTION WIDTH 17.5 % (11.6-14.4)
[2025-10-20 07:36] LABS: ALT/SGPT 7.0 U/L (12-78); AST/SGOT 13.0 U/L (15-37); BILIRUBIN TOTAL 2.82 mg/dL (0.3-1.2); BUN CREA RATIO 8.0 (7.0-25.0); GFR 7.41; GLOBULINA 3.2 G/DL (2.4-3.5); GLUCOSE FASTING 88.0 mg/dL (65-100); OSMOLALITY SERUM 285.0 MOSM/KG (275-295)
[2025-10-20 07:52] LABS: CREATININE SERUM 5.58 mg/dL (0.55-1.02)
[2025-10-20 09:53] LABS: CORTISOL 21.33 ug/dl
[2025-10-20 18:08] LABS: T4 FREE 0.4 NG/ML (0.76-1.46); TSH 1.39 uIU/mL (0.358-3.74)
[2025-10-21] MEDS ORDERED: ONDANSETRON HCL 2 MG/ML VIAL IV PRN (01:30)
[2025-10-21 04:00] VITALS: BP 145/69; O2SAT 100
[2025-10-21] MEDS ORDERED: LEVOTHYROXINE SODIUM 50 MCG TABLET PO SCH (06:00)
[2025-10-21 07:03] LABS: BASO % 0.5 % (0.1-1.2); EOS # 0.24 (0.04-0.54); EOS % 2.7 % (0.7-7.0); LYMPH # 0.81 (1.18-3.74); LYMPH % 9.1 % (19.3-53.1); MEAN PLATELET VOLUME 10.60 fl (9.4-12.4); MONO # 0.41 (0.24-0.82); MONO % 4.6 % (4.7-12.5); NEUT # 7.35 (1.56-6.13); NEUT % 82.8 % (34.0-71.1); RED CELL DISTRIBUTION WIDTH 17.6 % (11.6-14.4)
[2025-10-21 12:00] VITALS: BP 152/39; O2SAT 100
[2025-10-21 15:24] VITALS: BP 146/55; O2SAT 99
[2025-10-21 20:00] VITALS: BP 136/67; O2SAT 96
[2025-10-21 23:07] VITALS: BP 125/39; O2SAT 97
[2025-10-22] VITALS (19 sets, daily range): BP systolic 110–155; BP diastolic 36–79; O2SAT 98–100
[2025-10-22 06:36] LABS: BASO % 0.7 % (0.1-1.2); EOS # 0.30 (0.04-0.54); EOS % 3.4 % (0.7-7.0); LYMPH # 0.96 (1.18-3.74); LYMPH % 10.9 % (19.3-53.1); MEAN PLATELET VOLUME 10.80 fl (9.4-12.4); MONO # 0.45 (0.24-0.82); MONO % 5.1 % (4.7-12.5); NEUT # 7.00 (1.56-6.13); NEUT % 79.4 % (34.0-71.1); RED CELL DISTRIBUTION WIDTH 18.0 % (11.6-14.4)
[2025-10-22 07:01] LABS: GLUCOSE FASTING 197.0 mg/dL (65-100); OSMOLALITY SERUM 287.0 MOSM/KG (275-295)
[2025-10-22 07:09] LABS: BUN CREA RATIO 7.0 (7.0-25.0); GFR 9.45
[2025-10-22 07:10] LABS: CREATININE SERUM 4.52 mg/dL (0.55-1.02)
[2025-10-22] MEDS ORDERED: EPOETIN ALFA-EPBX 10,000 UNIT/ML VIAL (Retacrit) SUBCUTANEO NR (08:45)
[2025-10-22] MEDS ORDERED: VANCOMYCIN HCL 500 MG VIAL IV SCH (09:00)
[2025-10-22] MEDS ORDERED: POTASSIUM CHLORIDE IN WATER 40 MEQ/100 ML PIGGYBAG IV NR (11:00)
[2025-10-23 04:00] VITALS: BP 144/40; O2SAT 99
[2025-10-23 07:32] VITALS: BP 82/60; O2SAT 100
[2025-10-23] MEDS ORDERED: POTASSIUM CHLORIDE IN WATER 100 ML IV NR (09:00)
[2025-10-23 10:47] LABS: ALT/SGPT 8.0 U/L (12-78); AST/SGOT 13.0 U/L (15-37); BILIRUBIN TOTAL 1.94 mg/dL (0.3-1.2); BUN CREA RATIO 6.0 (7.0-25.0); GFR 9.48; GLOBULINA 3.6 G/DL (2.4-3.5); GLUCOSE FASTING 187.0 mg/dL (65-100); OSMOLALITY SERUM 285.0 MOSM/KG (275-295)
[2025-10-23 10:53] LABS: CREATININE SERUM 4.51 mg/dL (0.55-1.02)
[2025-10-23] MEDS ORDERED: POTASSIUM CHLORIDE 20MEQ/100ML H2O PB IV NR (11:30)
[2025-10-23 12:00] VITALS: BP 165/53; O2SAT 100
[2025-10-23 15:10] VITALS: BP 165/53; O2SAT 100
[2025-10-23 20:00] VITALS: BP 141/43; O2SAT 99
[2025-10-23 23:04] VITALS: BP 134/40; O2SAT 99
[2025-10-24 05:00] VITALS: BP 141/43; O2SAT 100
[2025-10-24 06:34] LABS: BASO % 0.9 % (0.1-1.2); EOS # 0.34 (0.04-0.54); EOS % 4.3 % (0.7-7.0); LYMPH # 1.01 (1.18-3.74); LYMPH % 12.8 % (19.3-53.1); MEAN PLATELET VOLUME 10.90 fl (9.4-12.4); MONO # 0.55 (0.24-0.82); MONO % 7.0 % (4.7-12.5); NEUT # 5.90 (1.56-6.13); NEUT % 74.5 % (34.0-71.1); RED CELL DISTRIBUTION WIDTH 18.5 % (11.6-14.4)
[2025-10-24 07:22] VITALS: BP 134/42
[2025-10-24 07:34] LABS: BUN CREA RATIO 6.0 (7.0-25.0); GFR 7.72; GLUCOSE FASTING 155.0 mg/dL (65-100); OSMOLALITY SERUM 290.0 MOSM/KG (275-295)
[2025-10-24 07:49] LABS: CREATININE SERUM 5.39 mg/dL (0.55-1.02)
[2025-10-24] MEDS ORDERED: VANCOMYCIN HCL 5 MG/ML REDILUIDO IV SCH (09:00)
[2025-10-24 12:00] VITALS: BP 147/41; O2SAT 100
[2025-10-24 15:48] VITALS: BP 137/46; O2SAT 100
[2025-10-24 22:00] VITALS: BP 129/48; O2SAT 100
[2025-10-24 23:25] VITALS: BP 150/42; O2SAT 100
[2025-10-25 04:00] VITALS: BP 126/49; O2SAT 100
[2025-10-25 07:18] VITALS: BP 132/45; O2SAT 100
[2025-10-25 09:47] VITALS: BP 166/75
[2025-10-25 12:00] VITALS: BP 130/41; O2SAT 97
[2025-10-25 13:02] LABS: BUN CREA RATIO 6.0 (7.0-25.0); CREATININE SERUM 2.84 mg/dL (0.55-1.02); GFR 16.16; GLUCOSE FASTING 142.0 mg/dL (65-100); OSMOLALITY SERUM 283.0 MOSM/KG (275-295)
[2025-10-25] MEDS ORDERED: POTASSIUM CHLORIDE IN WATER 40 MEQ/100 ML PIGGYBAG IV SCH (16:00)
[2025-10-26 03:12] VITALS: BP 144/69; O2SAT 98
[2025-10-26 08:14] LABS: BUN CREA RATIO 5.0 (7.0-25.0); GLUCOSE FASTING 131.0 mg/dL (65-100); OSMOLALITY SERUM 287.0 MOSM/KG (275-295)
[2025-10-26 10:19] LABS: CREATININE SERUM 4.55 mg/dL (0.55-1.02); GFR 9.38
[2025-10-26 10:58] VITALS: BP 128/57; O2SAT 99
[2025-10-26 17:17] VITALS: BP 154/73
[2025-10-27 01:06] VITALS: BP 134/62; O2SAT 96
[2025-10-27 06:14] LABS: BASO % 1.9 % (0.1-1.2); EOS # 0.25 (0.04-0.54); EOS % 3.4 % (0.7-7.0); LYMPH # 1.03 (1.18-3.74); LYMPH % 13.9 % (19.3-53.1); MEAN PLATELET VOLUME 10.50 fl (9.4-12.4); MONO # 0.50 (0.24-0.82); MONO % 6.8 % (4.7-12.5); NEUT # 5.45 (1.56-6.13); NEUT % 73.6 % (34.0-71.1); RED CELL DISTRIBUTION WIDTH 19.6 % (11.6-14.4)
[2025-10-27 06:48] LABS: ALT/SGPT 7.0 U/L (12-78); AST/SGOT 15.0 U/L (15-37); BILIRUBIN TOTAL 1.95 mg/dL (0.3-1.2); BUN CREA RATIO 6.0 (7.0-25.0); GFR 7.99; GLOBULINA 3.6 G/DL (2.4-3.5); GLUCOSE FASTING 141.0 mg/dL (65-100); OSMOLALITY SERUM 292.0 MOSM/KG (275-295)
[2025-10-27 07:48] LABS: CREATININE SERUM 5.23 mg/dL (0.55-1.02)
[2025-10-27 09:24] VITALS: BP 156/60; O2SAT 98
[2025-10-27] MEDS ORDERED: VANCOMYCIN HCL125 MG PO (09:33)
[2025-10-27] MEDS ORDERED: INTESTINEX680 M1 PO (09:34)
[2025-10-27] MEDS ORDERED: FUSION PLUS CA1 EACH PO (09:35)
[2025-10-27] MEDS ORDERED: MIDODRINE HCL5 MG PO (09:35)
[2025-10-27] MEDS ORDERED: CRESTOR40 MG PO (09:36)
[2025-10-27] MEDS ORDERED: B Complex PO (09:37)
[2025-10-27] MEDS ORDERED: Neurin-Sl Tablet Sl SL (09:37)
[2025-10-27] MEDS ORDERED: NEXIUM40 M1 PO (09:37)
[2025-10-27] MEDS ORDERED: PANTOPRAZOLE SODIUM 80 MG in 0.9 % SODIUM CHLORIDE 100 ML IV SCH (13:45)
[2025-10-27] MEDS ORDERED: OCTREOTIDE ACETATE 1,250 MCG in 0.9 % SODIUM CHLORIDE 250 ML IV SCH (14:00)
[2025-10-27] MEDS ORDERED: OCTREOTIDE ACETATE 0.05MG/ML (50MCG/ML) AMPUL IV NR (14:00)
[2025-10-27] MEDS ORDERED: MIDAZOLAM HCL 2 MG/2 ML VIAL IV ONE (17:45)
[2025-10-27 19:29] LABS: BASO % 0.4 % (0.1-1.2); EOS # 0.03 (0.04-0.54); EOS % 0.2 % (0.7-7.0); LYMPH # 0.94 (1.18-3.74); LYMPH % 6.2 % (19.3-53.1); MEAN PLATELET VOLUME 11.20 fl (9.4-12.4); MONO # 0.62 (0.24-0.82); MONO % 4.1 % (4.7-12.5); NEUT # 13.47 (1.56-6.13); NEUT % 88.8 % (34.0-71.1); RED CELL DISTRIBUTION WIDTH 19.8 % (11.6-14.4)
[2025-10-27] MEDS ORDERED: SUCRALFATE 1 G TABLET PO SCH (21:17)
[2025-10-27 21:56] VITALS: BP 81/50
[2025-10-28] VITALS (8 sets, daily range): BP systolic 72–150; BP diastolic 28–64; O2SAT 97–100
[2025-10-28 05:47] LABS: BASO % 0.4 % (0.1-1.2); EOS # 0.01 (0.04-0.54); EOS % 0.1 % (0.7-7.0); LYMPH # 0.93 (1.18-3.74); LYMPH % 5.2 % (19.3-53.1); MEAN PLATELET VOLUME 10.70 fl (9.4-12.4); MONO # 0.68 (0.24-0.82); MONO % 3.8 % (4.7-12.5); NEUT # 16.27 (1.56-6.13); NEUT % 90.2 % (34.0-71.1); RED CELL DISTRIBUTION WIDTH 20.3 % (11.6-14.4)
[2025-10-28 06:54] LABS: ALT/SGPT 8.0 U/L (12-78); AST/SGOT 28.0 U/L (15-37); BILIRUBIN TOTAL 2.27 mg/dL (0.3-1.2); BUN CREA RATIO 6.0 (7.0-25.0); GFR 9.99; GLOBULINA 3.6 G/DL (2.4-3.5); GLUCOSE FASTING 122.0 mg/dL (65-100); OSMOLALITY SERUM 291.0 MOSM/KG (275-295)
[2025-10-28 07:06] LABS: CREATININE SERUM 4.31 mg/dL (0.55-1.02)
[2025-10-28] MEDS ORDERED: DEXTROSE 5%-WATER 100ML IV.SOLN ONE (12:06)
[2025-10-28 18:46] LABS: URINE APPEARANCE Turbid; URINE BILIRRUBIN Small (NEGATIVE); URINE BLOOD Large; URINE COLOR Orange; URINE GLUCOSE Negative (NEGATIVE); URINE KETONE Negative (NEGATIVE); URINE LEUKOCYTE Large; URINE NITRATE Negative; URINE UROBILINOGEN 0.2 E.U./dl
[2025-10-28 18:50] LABS: URINE CAST 12.58 uL (0.0-1.40); URINE RBC 1298.5 uL (0.0-20.8)
[2025-10-28] MEDS ORDERED: 0.9 % SODIUM CHLORIDE 250 ML IV ONE (19:00)
[2025-10-28] MEDS ORDERED: NOREPINEPHRINE BITARTRATE 1 MG/ML AMPUL IV ONE (19:37)
[2025-10-28] MEDS ORDERED: NOREPINEPHRINE BITARTRATE 8 MG in DEXTROSE 5 % IN WATER 250 ML IV SCH (19:45)
[2025-10-28 19:47] LABS: TYPE CELLS SQUAMOUS; URINE BACTERIA > 9821.5 uL (0.0-1933); URINE EPITHELIAL CELLS > 201.7 uL (0.0-38.8); URINE PROTEIN 300 (NEGATIVE)
[2025-10-28 19:50] LABS: URINE WBC > 5548.3 uL (0.0-23.2)
[2025-10-28 19:51] LABS: URINE YEAST MODERATE /hpf
[2025-10-28] MEDS ORDERED: MEROPENEM 500 MG/VIAL VIAL IV SCH (21:00)
[2025-10-29] VITALS (18 sets, daily range): BP systolic 103–155; BP diastolic 33–57; O2SAT 94–100
[2025-10-29 08:05] LABS: BASO % 0.3 % (0.1-1.2); EOS # 0.06 (0.04-0.54); EOS % 0.2 % (0.7-7.0); LYMPH # 0.77 (1.18-3.74); LYMPH % 2.8 % (19.3-53.1); MEAN PLATELET VOLUME 10.80 fl (9.4-12.4); MONO # 1.19 (0.24-0.82); MONO % 4.3 % (4.7-12.5); NEUT # 25.22 (1.56-6.13); NEUT % 91.4 % (34.0-71.1); RED CELL DISTRIBUTION WIDTH 20.9 % (11.6-14.4)
[2025-10-29] MEDS ORDERED: SERTRALINE HCL 50 MG TABLET PO SCH (09:00)
[2025-10-29] MEDS ORDERED: ONDANSETRON HCL 2 MG/ML VIAL IV PRN (11:30)
[2025-10-29 13:01] LABS: ALT/SGPT 9.0 U/L (12-78); AST/SGOT 31.0 U/L (15-37); BILIRUBIN TOTAL 1.92 mg/dL (0.3-1.2); BUN CREA RATIO 6.0 (7.0-25.0); GFR 8.51; GLOBULINA 3.7 G/DL (2.4-3.5); GLUCOSE FASTING 166.0 mg/dL (65-100); OSMOLALITY SERUM 292.0 MOSM/KG (275-295)
[2025-10-29 13:06] LABS: CREATININE SERUM 4.95 mg/dL (0.55-1.02)
[2025-10-29] MEDS ORDERED: AMIKACIN SULFATE 250 MG/ML (500MG) VIAL IV ONE (22:15)
[2025-10-30] VITALS (23 sets, daily range): BP systolic 84–158; BP diastolic 37–66; O2SAT 96–100
[2025-10-30 07:10] LABS: BASO % 0.6 % (0.1-1.2); EOS # 0.11 (0.04-0.54); EOS % 0.6 % (0.7-7.0); LYMPH # 1.02 (1.18-3.74); LYMPH % 5.1 % (19.3-53.1); MEAN PLATELET VOLUME 10.30 fl (9.4-12.4); MONO # 0.91 (0.24-0.82); MONO % 4.6 % (4.7-12.5); NEUT # 17.69 (1.56-6.13); NEUT % 88.6 % (34.0-71.1); RED CELL DISTRIBUTION WIDTH 21.9 % (11.6-14.4)
[2025-10-30 08:25] LABS: COL EPI 91 SECONDS (82-175)
[2025-10-30 08:34] LABS: INR 1.49
[2025-10-30 08:38] LABS: D DIMER 6.18 MG/L
[2025-10-30 11:41] LABS: ob POSITIVE (NEGATIVE)
[2025-10-30 18:30] LABS: BASO % 0.7 % (0.1-1.2); EOS # 0.14 (0.04-0.54); EOS % 0.9 % (0.7-7.0); LYMPH # 0.79 (1.18-3.74); LYMPH % 5.3 % (19.3-53.1); MEAN PLATELET VOLUME 9.60 fl (9.4-12.4); MONO # 0.49 (0.24-0.82); MONO % 3.3 % (4.7-12.5); NEUT # 13.44 (1.56-6.13); NEUT % 89.3 % (34.0-71.1); RED CELL DISTRIBUTION WIDTH 19.8 % (11.6-14.4)
[2025-10-31] VITALS (12 sets, daily range): BP systolic 109–153; BP diastolic 40–72; O2SAT 92–100
[2025-10-31 06:24] LABS: BASO % 1.1 % (0.1-1.2); EOS # 0.14 (0.04-0.54); EOS % 1.3 % (0.7-7.0); LYMPH # 0.81 (1.18-3.74); LYMPH % 7.6 % (19.3-53.1); MEAN PLATELET VOLUME 10.70 fl (9.4-12.4); MONO # 0.51 (0.24-0.82); MONO % 4.8 % (4.7-12.5); NEUT # 9.11 (1.56-6.13); NEUT % 84.9 % (34.0-71.1); RED CELL DISTRIBUTION WIDTH 20.1 % (11.6-14.4)
[2025-10-31 06:50] LABS: ALT/SGPT 10.0 U/L (12-78); AST/SGOT 24.0 U/L (15-37); BILIRUBIN TOTAL 1.39 mg/dL (0.3-1.2); BUN CREA RATIO 4.0 (7.0-25.0); CREATININE SERUM 2.8 mg/dL (0.55-1.02); GFR 16.43; GLOBULINA 3.5 G/DL (2.4-3.5); GLUCOSE FASTING 111.0 mg/dL (65-100); OSMOLALITY SERUM 285.0 MOSM/KG (275-295)
[2025-10-31] MEDS ORDERED: POTASSIUM CHLORIDE 20MEQ/100ML H2O PB IV NR (08:00)
[2025-10-31] MEDS ORDERED: POTASSIUM CHLORIDE IN WATER 40 MEQ/100 ML PIGGYBAG IV NR (12:00)
[2025-10-31] MEDS ORDERED: SODIUM CL 0.9% 250 ML IV.SOLN ONE ×3 (14:21→14:22)
[2025-10-31] MEDS ORDERED: AZTREONAM/AVIBACTAM SODIUM 2 GM VIAL IV ONE (17:00)
[2025-10-31] MEDS ORDERED: PANTOPRAZOLE SODIUM 80 MG in 0.9 % SODIUM CHLORIDE 100 ML IV SCH (17:45)
[2025-10-31] MEDS ORDERED: VANCOMYCIN HCL 1,000 MG VIAL IV NR (18:00)
[2025-11-01 04:00] VITALS: BP 135/57; O2SAT 97
[2025-11-01] MEDS ORDERED: AZTREONAM/AVIBACTAM SODIUM 2 GM VIAL IV SCH (05:00)
[2025-11-01 08:48] VITALS: BP 127/60; O2SAT 96
[2025-11-01 12:00] VITALS: BP 153/95; O2SAT 98
[2025-11-01 15:21] VITALS: BP 146/61; O2SAT 98
[2025-11-01] MEDS ORDERED: AA 4.25%/CALCIUM/LYTES/DEX 10% 1,000 ML CENTRAL SCH (17:00)
[2025-11-01 20:11] VITALS: BP 147/61; O2SAT 100
[2025-11-01 23:30] VITALS: BP 157/72; O2SAT 97
[2025-11-02 04:00] VITALS: BP 144/75; O2SAT 98
[2025-11-02] MEDS ORDERED: DEXTROSE 5%-WATER 250ML IV.SOLN ONE (05:51)
[2025-11-02 07:12] VITALS: BP 118/61; O2SAT 97
[2025-11-02 07:51] LABS: BASO % 1.9 % (0.1-1.2); EOS # 0.12 (0.04-0.54); EOS % 1.9 % (0.7-7.0); LYMPH # 1.36 (1.18-3.74); LYMPH % 21.1 % (19.3-53.1); MEAN PLATELET VOLUME 10.50 fl (9.4-12.4); MONO # 0.64 (0.24-0.82); MONO % 9.9 % (4.7-12.5); NEUT # 4.15 (1.56-6.13); NEUT % 64.4 % (34.0-71.1); RED CELL DISTRIBUTION WIDTH 21.9 % (11.6-14.4)
[2025-11-02 08:38] LABS: ALT/SGPT 9.0 U/L (12-78); AST/SGOT 35.0 U/L (15-37); BILIRUBIN TOTAL 1.22 mg/dL (0.3-1.2); BUN CREA RATIO 5.0 (7.0-25.0); CREATININE SERUM 3.52 mg/dL (0.55-1.02); GFR 12.62; GLOBULINA 3.7 G/DL (2.4-3.5); GLUCOSE FASTING 191.0 mg/dL (65-100); OSMOLALITY SERUM 286.0 MOSM/KG (275-295)
[2025-11-02 12:00] VITALS: BP 150/69; O2SAT 99
[2025-11-02 15:19] VITALS: BP 141/72; O2SAT 99
[2025-11-02 15:45] LABS: URINE APPEARANCE Cloudy; URINE BACTERIA 978.1 uL (0.0-1933); URINE BILIRRUBIN Small (NEGATIVE); URINE BLOOD Moderate; URINE COLOR Dark Yellow; URINE EPITHELIAL CELLS 63.3 uL (0.0-38.8); URINE KETONE 15 (NEGATIVE); URINE LEUKOCYTE Moderate; URINE NITRATE Negative; URINE PROTEIN >=1000 (NEGATIVE); URINE RBC 183.1 uL (0.0-20.8); URINE UROBILINOGEN 1.0 E.U./dl; URINE WBC 1226.9 uL (0.0-23.2)
[2025-11-02 15:46] LABS: URINE CAST > 21.83 uL (0.0-1.40); URINE GLUCOSE 100 MG/DL (NEGATIVE)
[2025-11-02 15:57] LABS: URINE MUCUS SCANT; URINE YEAST MODERATE /hpf
[2025-11-02 15:59] LABS: TYPE CELLS SQUAMOUS
[2025-11-02 20:00] VITALS: BP 135/72; O2SAT 100
[2025-11-02 23:21] VITALS: BP 136/75; O2SAT 99
[2025-11-03 03:59] VITALS: BP 140/80; O2SAT 100
[2025-11-03 06:43] LABS: BASO % 1.7 % (0.1-1.2); EOS # 0.08 (0.04-0.54); EOS % 1.5 % (0.7-7.0); LYMPH # 0.94 (1.18-3.74); LYMPH % 17.5 % (19.3-53.1); MEAN PLATELET VOLUME 11.30 fl (9.4-12.4); MONO # 0.57 (0.24-0.82); MONO % 10.6 % (4.7-12.5); NEUT # 3.64 (1.56-6.13); NEUT % 67.8 % (34.0-71.1); RED CELL DISTRIBUTION WIDTH 22.5 % (11.6-14.4)
[2025-11-03 07:13] LABS: ALT/SGPT 11.0 U/L (12-78); AST/SGOT 48.0 U/L (15-37); BILIRUBIN TOTAL 1.19 mg/dL (0.3-1.2); BILIRUBIN,CONJUGATED 0.24 mg/dL (0.0-0.2); CHOL HDL RATIO 11.5 (0-5.0); GLOBULINA 3.8 G/DL (2.4-3.5); INR 1.49
[2025-11-03 07:17] LABS: BUN CREA RATIO 6.0 (7.0-25.0); CREATININE SERUM 4.16 mg/dL (0.55-1.02); GFR 10.4; GLUCOSE FASTING 225.0 mg/dL (65-100); HDL 10.0 mg/dl (40-60); LDL 46.0 mg/dl (0-130); OSMOLALITY SERUM 289.0 MOSM/KG (275-295); VLDL 59.0 (0-39)
[2025-11-03 07:20] VITALS: BP 126/63; O2SAT 100
[2025-11-03] MEDS ORDERED: DIPHENHYDRAMINE HCL 50 MG/ML VIAL 1ML IV PRN (07:45)
[2025-11-03] MEDS ORDERED: INSULIN NPH HUMAN ISOPHANE 1,000 UNITS/10 ML UNITS SUBCUTANEO SCH (09:00)
[2025-11-03] MEDS ORDERED: LIDOCAINE 1 EACH ADH..PATCH TOP SCH (09:00)
[2025-11-03 12:00] VITALS: BP 116/52; O2SAT 100
[2025-11-03 15:25] VITALS: BP 136/63; O2SAT 100
[2025-11-03 20:00] VITALS: BP 131/58; O2SAT 100
[2025-11-03 23:14] VITALS: BP 126/64; O2SAT 98
[2025-11-04] VITALS (9 sets, daily range): BP systolic 94–137; BP diastolic 46–79; O2SAT 98–100
[2025-11-04 06:35] LABS: URINE APPEARANCE Turbid; URINE BILIRRUBIN Small (NEGATIVE); URINE BLOOD Moderate; URINE COLOR Dark Yellow; URINE GLUCOSE Negative (NEGATIVE); URINE KETONE Trace (NEGATIVE); URINE LEUKOCYTE Moderate; URINE NITRATE Positive; URINE PROTEIN >=1000 (NEGATIVE); URINE UROBILINOGEN 0.2 E.U./dl
[2025-11-04 06:40] LABS: URINE CAST 1.78 uL (0.0-1.40); URINE EPITHELIAL CELLS 36.3 uL (0.0-38.8); URINE RBC 146.5 uL (0.0-20.8); URINE WBC 1847.0 uL (0.0-23.2)
[2025-11-04 06:51] LABS: URINE CRYSTALS FEW /HPF
[2025-11-04] MEDS ORDERED: PANTOPRAZOLE SODIUM 40 MG/VIAL VIAL IV PUSH SCH (09:00)
[2025-11-04] MEDS ORDERED: DILTIAZEM HCL 125MG/25ML VIAL IV ONE (13:59)
[2025-11-04] MEDS ORDERED: DILTIAZEM HCL 125 MG in 0.9 % SODIUM CHLORIDE 100 ML IV SCH (14:15)
[2025-11-05] VITALS (7 sets, daily range): BP systolic 113–158; BP diastolic 52–98; O2SAT 98–100
[2025-11-05 06:49] LABS: BASO % 1.6 % (0.1-1.2); EOS # 0.14 (0.04-0.54); EOS % 3.3 % (0.7-7.0); LYMPH # 0.77 (1.18-3.74); LYMPH % 18.1 % (19.3-53.1); MEAN PLATELET VOLUME 10.60 fl (9.4-12.4); MONO # 0.35 (0.24-0.82); MONO % 8.2 % (4.7-12.5); NEUT # 2.91 (1.56-6.13); NEUT % 68.3 % (34.0-71.1); RED CELL DISTRIBUTION WIDTH 23.6 % (11.6-14.4)
[2025-11-05 07:38] LABS: ALT/SGPT 12.0 U/L (12-78); AST/SGOT 55.0 U/L (15-37); BILIRUBIN TOTAL 1.08 mg/dL (0.3-1.2); BUN CREA RATIO 5.0 (7.0-25.0); GFR 10.76; GLOBULINA 4.0 G/DL (2.4-3.5); GLUCOSE FASTING 108.0 mg/dL (65-100); OSMOLALITY SERUM 281.0 MOSM/KG (275-295)
[2025-11-05 07:46] LABS: CREATININE SERUM 4.04 mg/dL (0.55-1.02)
[2025-11-05] MEDS ORDERED: CYANOCOBALAMIN (VITAMIN B-12) 1,000 MCG/ML VIAL IM SCH (09:00)
[2025-11-05] MEDS ORDERED: LACTOBACILLUS ACIDOPHILUS 1 CAP CAP PO SCH (09:00)
[2025-11-05] MEDS ORDERED: MIDODRINE HCL 5 MG TABLET PO SCH (09:00)
[2025-11-05] MEDS ORDERED: CHOLECALCIFEROL (VITAMIN D3) 5,000 UNITS TABLET PO SCH (09:00)
[2025-11-05] MEDS ORDERED: AMINO ACIDS/PROTEIN HYDROLYS 30 ML BLIST.PACK PO SCH (17:00)
[2025-11-06] VITALS (7 sets, daily range): BP systolic 133–173; BP diastolic 45–81; O2SAT 90–100
[2025-11-06] MEDS ORDERED: PANTOPRAZOLE SODIUM 40 MG TABLET.DR PO NR (10:00)
[2025-11-06] MEDS ORDERED: PANTOPRAZOLE SODIUM 40 MG TABLET.DR PO SCH (17:00)
[2025-11-07 00:01] VITALS: BP 158/91; O2SAT 96
[2025-11-07 02:53] VITALS: O2SAT 92
[2025-11-07 08:29] VITALS: BP 176/89; O2SAT 98
[2025-11-07] MEDS ORDERED: VANCOMYCIN HCL 5 MG/ML REDILUIDO IV SCH (09:00)
[2025-11-07] MEDS ORDERED: HEPARIN SODIUM,PORCINE 5,000 UNITS/ML VIAL IV NR (10:00)
[2025-11-07 16:00] VITALS: BP 158/74; O2SAT 98
[2025-11-07 16:45] VITALS: O2SAT 90
[2025-11-07] MEDS ORDERED: FLUCONAZOLE 100 MG TABLET PO SCH (17:00)
[2025-11-07 21:04] VITALS: O2SAT 99
[2025-11-08] VITALS (8 sets, daily range): BP systolic 148–168; BP diastolic 68–84; O2SAT 89–100
[2025-11-09] VITALS (7 sets, daily range): BP systolic 141–181; BP diastolic 65–80; O2SAT 96–100
[2025-11-09] MEDS ORDERED: MIDODRINE HCL 5 MG TABLET PO SCH (09:00)
[2025-11-09] MEDS ORDERED: NIFEDIPINE 30 MG TAB.SA.OSM PO SCH (12:24)
[2025-11-09] MEDS ORDERED: hydrALAZINE HCL 20 MG VIAL IV PRN (17:45)
[2025-11-09] MEDS ORDERED: ONDANSETRON HCL 4 MG in DEXTROSE 5 % IN WATER 50 ML IV PRN (21:45)
[2025-11-10] VITALS (7 sets, daily range): BP systolic 148–172; BP diastolic 61–88; O2SAT 95–97
[2025-11-10 06:20] LABS: BASO % 1.2 % (0.1-1.2); EOS # 0.10 (0.04-0.54); EOS % 1.9 % (0.7-7.0); LYMPH # 0.88 (1.18-3.74); LYMPH % 17.0 % (19.3-53.1); MEAN PLATELET VOLUME 10.50 fl (9.4-12.4); MONO # 0.37 (0.24-0.82); MONO % 7.1 % (4.7-12.5); NEUT # 3.76 (1.56-6.13); NEUT % 72.4 % (34.0-71.1); RED CELL DISTRIBUTION WIDTH 24.0 % (11.6-14.4)
[2025-11-10 07:23] LABS: ALT/SGPT 7.0 U/L (12-78); AST/SGOT 21.0 U/L (15-37); BILIRUBIN TOTAL 1.14 mg/dL (0.3-1.2); BUN CREA RATIO 6.0 (7.0-25.0); GFR 9.48; GLOBULINA 3.9 G/DL (2.4-3.5); GLUCOSE FASTING 130.0 mg/dL (65-100); OSMOLALITY SERUM 286.0 MOSM/KG (275-295)
[2025-11-10 07:56] LABS: CREATININE SERUM 4.51 mg/dL (0.55-1.02)
[2025-11-10] MEDS ORDERED: CARVEDILOL 3.125 MG TABLET PO SCH (09:00)
[2025-11-10] MEDS ORDERED: POTASSIUM CHLORIDE 20MEQ/100ML H2O PB IV NR (09:15)
[2025-11-10] MEDS ORDERED: HEPARIN SODIUM,PORCINE 5,000 UNITS/ML VIAL IV STA (13:33)
[2025-11-11] VITALS (7 sets, daily range): BP systolic 133–170; BP diastolic 60–94; O2SAT 90–95
[2025-11-11 09:54] LABS: BUN CREA RATIO 5.0 (7.0-25.0); CREATININE SERUM 3.69 mg/dL (0.55-1.02); GFR 11.95; GLUCOSE FASTING 109.0 mg/dL (65-100); OSMOLALITY SERUM 282.0 MOSM/KG (275-295)
[2025-11-11] MEDS ORDERED: CARVEDILOL 6.25 MG TABLET PO SCH (21:00)
[2025-11-12] VITALS (7 sets, daily range): BP systolic 148–174; BP diastolic 75–79; O2SAT 90–100
[2025-11-12] MEDS ORDERED: CARAFATE1 GM PO (14:10)
[2025-11-12] MEDS ORDERED: SERTRALINE HCL50 MG PO (14:10)
[2025-11-12] MEDS ORDERED: CYANOCOBAL1000 MCG/1 IM (14:10)
[2025-11-12] MEDS ORDERED: INTESTINEX680 M1 PO (14:10)
[2025-11-12] MEDS ORDERED: VITAMIN D3125 MC2 PO (14:10)
[2025-11-12] MEDS ORDERED: CARVEDILOL6.25 MG PO (14:10)
[2025-11-12] MEDS ORDERED: PANTOPRAZOLE SO40 MG PO (14:10)
[2025-11-12] MEDS ORDERED: LORAZEPAM0.5 MG PO (14:10)
[2025-11-12] MEDS ORDERED: VANCOMYCIN HCL125 MG PO (14:10)
[2025-11-12] MEDS ORDERED: SYNTHROID50 MCG PO (14:10)
[2025-11-12] MEDS ORDERED: APETIGEN P12.5 MG/15 PO (14:10)
== END 2025-11-12 15:21 | disposition home or self-care (01) | DRG 377 ==
LOC: ER 09:28 → ICU 14:59 → ICU-2 14:59 → ICU 10-13 04:44 → MEDI 10-25 15:41 → ICU 10-28 15:56 → SURH 11-06 17:42
PROVIDERS: Internal Medicine; Internal Medicine Infectious Disease; Internal Medicine Nephrology; Physician Assistant Medical; ADMIT Internal Medicine; ATTEND Internal Medicine
PROC: 0BH18EZ Insertion of Endotracheal Airway into Trachea, Via Natural or Artificial Opening Endoscopic (ICD-10-PCS; principal; 2025-10-12)
PROC: 5A1955Z Respiratory Ventilation, Greater than 96 Consecutive Hours (ICD-10-PCS; 2025-10-12)
PROC: 30243N1 Transfusion of Nonautologous Red Blood Cells into Central Vein, Percutaneous Approach (ICD-10-PCS; 2025-10-12)
PROC: 02HV33Z Insertion of Infusion Device into Superior Vena Cava, Percutaneous Approach (ICD-10-PCS; 2025-10-13)
PROC: B24BYZZ Ultrasonography of Heart with Aorta using Other Contrast (ICD-10-PCS; 2025-10-14)
PROC: BW24ZZZ Computerized Tomography (CT Scan) of Chest and Abdomen (ICD-10-PCS; 2025-10-15)
PROC: BW21ZZZ Computerized Tomography (CT Scan) of Abdomen and Pelvis (ICD-10-PCS; 2025-10-18)
PROC: 0DJ08ZZ Inspection of Upper Intestinal Tract, Via Natural or Artificial Opening Endoscopic (ICD-10-PCS; 2025-10-27)
PROC: B24BYZZ Ultrasonography of Heart with Aorta using Other Contrast (ICD-10-PCS; 2025-10-30)
PROC: 4A12X4Z Monitoring of Cardiac Electrical Activity, External Approach (ICD-10-PCS; 2025-11-06)
DX: K92.2 Gastrointestinal hemorrhage, unspecified (principal); A41.9 Sepsis, unspecified organism; J15.211 Pneumonia due to Methicillin susceptible Staphylococcus aureus; J96.91 Respiratory failure, unspecified with hypoxia; N18.6 End stage renal disease; R57.9 Shock, unspecified; I50.20 Unspecified systolic (congestive) heart failure; E11.9 Type 2 diabetes mellitus without complications; Z79.4 Long term (current) use of insulin; I50.9 Heart failure, unspecified; E11.22 Type 2 diabetes mellitus with diabetic chronic kidney disease; D64.9 Anemia, unspecified; K31.819 Angiodysplasia of stomach and duodenum without bleeding; I35.0 Nonrheumatic aortic (valve) stenosis; D69.6 Thrombocytopenia, unspecified; E03.9 Hypothyroidism, unspecified; K92.1 Melena; I10 Essential (primary) hypertension; K92.0 Hematemesis; F43.22 Adjustment disorder with anxiety; K25.4 Chronic or unspecified gastric ulcer with hemorrhage